=== PATIENT | female | born 1995 | race Caucasian/White ===

== ENCOUNTER 2017-03-19 10:52 | Inpatient (IN) | payer MEDICAID ==
[2017-03-19] MEDS ORDERED: Ampicillin 2 GM in Sodium Chloride 0.9% 100 ML IV ONE (11:11)
[2017-03-19] MEDS ORDERED: Acetaminophen 325 MG Tab PO PRN ×2 (11:11→22:51)
[2017-03-19] MEDS ORDERED: Nalbuphine 20 MG/1 ML Amp IVPUSH PRN (11:11)
[2017-03-19] MEDS ORDERED: Ondansetron 4 MG/2 ML SDV IVPUSH PRN ×2 (11:11→14:01)
[2017-03-19] MEDS ORDERED: Sodium Chloride 0.9% 10 ML Syringe FLUSH PRN (11:11)
--- NOTE | 2017-03-19 11:13 | PCM.LDHP ---
L&D History of Present Illness - General Date of Service: 03/19/17 Admit Problem/Dx: Patient Status Order with Admit Dx/Problem 03/19/17 11:11 Patient Status [ADT] Routine Admission Diagnosis/Problem Admission Diagnosis/Problem Normal Source of Information: Patient History Limitations: Reports: No Limitations - History of Present Illness Introduction:: Patient is a 21 y/o at 35 3/7 wks who presents with threatened labor. Had presented to clinic today for complaints of cramping and decreased FM. NST done and appropriate, but cervix check showed patient to be 3 cm dilated and 100% effaced. She was given BMTZ and asked to present to L&D. Currently doing well. Still getting cramping, but no daren contractions - Related Data Allergies/Adverse Reactions: Allergies Allergy/AdvReac Type Severity Reaction Status Date / Time No Known Allergies Allergy Verified 10/10/15 23:14 Home Medications: Home Meds PNV95/Ferrous Fumarate/FA [ Vitamin Tablet] 1 each PO DAILY 03/19/17 [ History] Past Medical History Endocrine/Metabolic History: Reports: Hypothyroidism Hematologic History: Reports: Other (See Below) (Heterozygote for Factor V Leiden) - Past Surgical History HEENT Surgical History: Reports: Adenoidectomy, Tonsillectomy Social & Family History - Tobacco Use Smoking Status *Q: Former Smoker - Alcohol Use Alcohol Use History: No - Recreational Drug Use Recreational Drug Use: No H&P Review of Systems - Review of Systems: Review Of Systems: See Below General: Reports: No Symptoms Pulmonary: Reports: No Symptoms Cardiovascular: Reports: No Symptoms Gastrointestinal: Reports: No Symptoms Genitourinary: Reports: No Symptoms Musculoskeletal: Reports: No Symptoms Psychiatric: Reports: No Symptoms L&D Exam - Exam Exam: See Below - Vital Signs Weight: 93.44 kg - OB Specific Contraction Intensity: Mild Movement: Active Heart Tones: Present Heart Tones per Min: 140 Heart Rate (FHR) Variability: Moderate (6-25 bmp) Presentation: Vertex - Garrett Score Garrett Score Cervix Position: Anterior Garrett Score Consistency: Soft Garrett Score Effacement: >80% Garrett Score Dilation: 3-4 cm Garrett Score 's Station: -1 ,0 Garrett Score Total: 11 - Exam General: Alert, Oriented, Cooperative Lungs: Clear to Auscultation, Normal Respiratory Effort Cardiovascular: Regular Rate, Regular Rhythm Abdomen: Soft Genitourinary: Normal external exam Extremities: Normal Inspection Skin: Warm, Dry, Intact - Patient Data Result Diagrams: 03/19/17 11:25 - Problem List (1) 35 weeks gestation of SNOMED Code(s): 13812081 ICD Code: Z3A.35 - 35 WEEKS GESTATION OF Status: Acute Current Visit: Yes (2) GBS bacteriuria SNOMED Code(s): 43498673 ICD Code: R82.71 - BACTERIURIA Status: Acute Current Visit: Yes (3) Heterozygous factor V Leiden affecting in third trimester, antepartum SNOMED Code(s): 675428854 ICD Code: O99.113 - OTH DIS OF BLD/BLD-FORM ORG/IMMUN MECHNSM COMP PREG, 3RD TRI; D68.51 - ACTIVATED PROTEIN C RESISTANCE Status: Acute Current Visit: Yes (4) labor SNOMED Code(s): 9214266 ICD Code: O60.00 - LABOR WITHOUT DELIVERY, UNSPECIFIED TRIMESTER Status: Acute Current Visit: Yes Qualifiers: labor trimester: third trimester labor delivery status: with delivery in third trimester Fetus number: single or unspecified fetus Qualified Code(s): O60.14X0 - labor third trimester with delivery third trimester, not applicable or unspecified Problem List Initiated/Reviewed/Updated: Yes Orders Last 24hrs: Active Orders 24 hr Category Date Time Status Patient Status [ADT] Routine ADT 03/19/17 11:11 Ordered Activity as Tolerated [RC] PFP Care 03/19/17 11:11 Ordered Communication Order [RC] ASDIRECTED Care 03/19/17 11:11 Ordered Heart Tones [RC] ASDIRECTED Care 03/19/17 11:11 Ordered Notify Provider [RC] PFP Care 03/19/17 11:11 Ordered Notify Provider [RC] PRN Care 03/19/17 11:11 Ordered Peripheral IV Care [RC] . DIRECTED Care 03/19/17 11:11 Ordered Vital Signs [RC] PER UNIT ROUTINE Care 03/19/17 11:11 Ordered CBC W/O DIFF,HEMOGRAM [HEME] Routine Lab 03/19/17 11:11 Ordered TYPE AND SCREEN [BBK] Routine Lab 03/19/17 11:11 Ordered UA W/MICROSCOPIC [URIN] Routine Lab 03/19/17 11:11 Uncollected Acetaminophen [Tylenol] Med 03/19/17 11:11 Ordered 650 mg PO Q4H PRN Ampicillin 1 gm Med 03/19/17 11:15 Ordered Sodium Chloride 0.9% [Normal Saline] 100 ml IV Q4H Ampicillin 2 gm Med 03/19/17 11:11 Ordered Sodium Chloride 0.9% [Normal Saline] 100 ml IV ONETIME Lactated Ringers [Ringers, Lactated] 1,000 ml Med 03/19/17 11:15 Ordered IV ASDIRECTED Nalbuphine [Nubain] Med 03/19/17 11:11 Ordered 10 mg IVPUSH Q2H PRN Ondansetron [Zofran] Med 03/19/17 11:11 Ordered 4 mg IVPUSH Q4H PRN Oxytocin/Lactated Ringers [Pitocin in LR 10 Units/1,000 Med 03/19/17 11:15 Ordered ML] 10 unit in 1,000 ml IV TITRATE Sodium Chloride 0.9% [Saline Flush] Med 03/19/17 11:11 Ordered 10 ml FLUSH ASDIRECTED PRN Electronic Heart Tones Ext w TOCO [WOMSER] Oth 03/19/17 11:11 Ordered Routine Electronic Heart Tones Internal [WOMSER] Per Unit Oth 03/19/17 11:11 Ordered Routine Peripheral IV Insertion Adult [OM.PC] Routine Oth 03/19/17 11:11 Ordered Resuscitation Status Routine Resus Stat 03/19/17 11:11 Ordered Assessment/Plan Comment:: 21 y/o at 35 3/7 wks who presents in threatened labor * CBC and T&S * GBS positive based on early urine culture. Start Ampicillin * Has received 1 dose of BMTZ. If remains until tomorrow will complete 2nd injection * Peds aware of patient admission * Patient prefers unmedicated delivery * She is heterozygous Factor V Leiden mutation carrier. Not on anti- coagulation during . Depending upon circumstances of delivery may need to consider . Yolande Barreto MD
[2017-03-19] MEDS ORDERED: Oxytocin/Lactated Ringers 10 UNIT/1,000 ML BAG IV SCH (11:15)
[2017-03-19] MEDS: Lactated Ringers 1,000 ML IV SCH ×2 (12:12→15:47)
[2017-03-19] MEDS: Ampicillin 1 GM in Sodium Chloride 0.9% 100 ML IV SCH ×2 (12:14→15:48)
[2017-03-19] MEDS ORDERED: ePHEDrine 50 MG/ML SDV IVPUSH PRN (14:01)
[2017-03-19] MEDS ORDERED: fentaNYL 100 MCG/2 ML SDV EPIDUR PRN (14:01)
[2017-03-19] MEDS ORDERED: Bupivacaine/fentaNYL/NS 100 ML Bag EPIDUR SCH (14:15)
[2017-03-19] MEDS ORDERED: Lidocaine 1% 50 ML MDV ONE (16:06)
[2017-03-19] MEDS ORDERED: Lidocaine 1% 50 ML MDV INJECT ONE (17:55)
[2017-03-19] MEDS ORDERED: Docusate Sodium 100 MG Cap PO PRN (22:51)
[2017-03-19] MEDS ORDERED: Lanolin 100% Cream 7 GM Tube TOP PRN (22:51)
[2017-03-19] MEDS ORDERED: Witch Hazel Medicated Pads 100/Jar TOP PRN (22:51)
[2017-03-20] MEDS: Ibuprofen 600 MG Tab PO PRN ×2 (04:12→11:00)
--- NOTE | 2017-03-20 07:48 | PCM.PNLD ---
Labor Progress Note - VS & Meds Vital Signs: Last Vital Signs Temp 36.5 C 03/20/17 03:59 Pulse 51 L 03/20/17 03:59 Resp 12 03/20/17 03:59 BP 123/68 03/20/17 03:59 Pulse Ox 99 03/20/17 03:59 Active Medications: Current Medications Acetaminophen (Tylenol) 650 mg PO Q4H PRN PRN Reason: mild pain or fever Docusate Sodium (Colace) 100 mg PO BID PRN PRN Reason: Constipation Emollient Ointment (Lansinoh Hpa) 0 gm TOP ASDIRECTED PRN PRN Reason: Sore Nipples Ibuprofen (Motrin) 600 mg PO Q6H PRN PRN Reason: Mild pain or fever Last Admin: 03/20/17 04:12 Dose: 600 mg Witch Becky (Tucks) 1 pad TOP ASDIRECTED PRN PRN Reason: Hemorrhoid pain Discontinued Medications Acetaminophen (Tylenol) 650 mg PO Q4H PRN PRN Reason: Pain (Mild 1-3) and fever Ephedrine Sulfate (Ephedrine Sulfate) 5 mg IVPUSH ASDIRECTED PRN PRN Reason: Hypotension Fentanyl (Sublimaze) 100 mcg EPIDUR Q3H PRN PRN Reason: Pain Fentanyl/Bupivacaine HCl (Fentanyl/Bupivacaine/Ns 2 Mcg-0.125% 100 Ml) 100 ml EPIDUR ASDIRECTED [facility] Ampicillin Sodium 2 gm/ Sodium (Chloride) 100 mls @ 200 mls/hr IV ONETIME ONE Stop: 03/19/17 11:40 Last Admin: 03/19/17 12:12 Dose: 200 mls/hr Ampicillin Sodium 1 gm/ Sodium (Chloride) 100 mls @ 200 mls/hr IV Q4H [facility] Last Admin: 03/19/17 15:48 Dose: 100 mls/hr Lactated Ringer's (Ringers, Lactated) 1,000 mls @ 100 mls/hr IV ASDIRECTED [facility] Last Admin: 03/19/17 15:47 Dose: 100 mls/hr Oxytocin/Lactated Ringer's (Pitocin In Lr 10 Units/1,000 Ml) 10 unit in 1,000 mls @ 500 mls/hr IV TITRATE [facility] PRN Reason: Protocol Last Admin: 03/19/17 17:25 Dose: 6 mls/hr, 6 mls/hr Lidocaine HCl (Xylocaine 1%) Confirm Administered Dose 50 ml .ROUTE .STK-MED ONE Stop: 03/19/17 16:07 Last Admin: 03/19/17 18:32 Dose: Not Given Lidocaine HCl (Xylocaine 1%) 50 ml INJECT ONETIME ONE Stop: 03/19/17 17:56 Last Admin: 03/19/17 17:55 Dose: 15 ml Nalbuphine HCl (Nubain) 10 mg IVPUSH Q2H PRN PRN Reason: Pain (moderate 4-6) Ondansetron HCl (Zofran) 4 mg IVPUSH Q4H PRN PRN Reason: Nausea/Vomiting Ondansetron HCl (Zofran) 4 mg IVPUSH ONETIME PRN PRN Reason: Nausea/Vomiting Sodium Chloride (Saline Flush) 10 ml FLUSH ASDIRECTED PRN PRN Reason: Keep Vein Open - Uterine Contractions Uterine Monitoring Mode: External [place] Contraction Intensity: Moderate to Strong - Monitoring Monitor Mode: External Ultrasound Heart Rate (FHR) Variability: Moderate (6-25 bmp) Accelerations: Present, 15x15 Decelerations: None Strip Review: Category I - Vaginal Exam Dilation (cm): 7 Effacement (Percent): 100 Station: 0 Cervical Position: Anterior Sterile Vaginal Exam Performed By: Yolande Barreto - Labor Progress (Free Text) Labor Progress: Patient just with SROM. Now feeling much more uncomfortable. Rapid cervical change. Anticipate
--- NOTE | 2017-03-20 07:53 | PCM.DEL ---
L & D Note - General Info Date of Service: 03/19/17 - Delivery Note Labor: spontaneous Delivery Outcome: Livebirth Delivery Method: Spontaneous Vaginal Delivery Delivery Mode: Spontaneous Presentation: Right Occiput Anterior (LUZ) Nuchal Cord: Present (Not able to be reduced ) Anesthesia Type: None Amniotic Fluid Description: Clear Episiotomy Type: None Laceration: 2nd degree Suture type: vicryl Suture size: 2-0 Placenta: intact, spontaneous Cord: 3 vessels Estimated Blood Loss: 250 Resuscitation Needed: Yes : Suctioned, Bulb Syringe, Stimulated, Warmed, [place] Used, Warmer Used Score 1 min: 9 Score 5 min: 9 Delivery Comments (Free Text/Narrative):: Patient found to be complete and began pushing. With maternal pushing effort head delivered from an LUZ presentation. Tight nuchal cord present. NOt able to be reduced. Gentle downward tractions placed on head with quick delivery of shoulders and body. Cord clamped and cut. Baby handed to awaiting [employer]. Cord blood obtained. Placenta allowed time to separate and then expelled. Inspection of the perineum showed a 2nd degree laceration repaired with a 2-0 vicryl in the typical fashion - Patient Data Vitals - most recent: Last Vital Signs Temp 36.5 C 03/20/17 03:59 Pulse 51 L 03/20/17 03:59 Resp 12 03/20/17 03:59 BP 123/68 03/20/17 03:59 Pulse Ox 99 03/20/17 03:59 Weight - most recent: 93.44 kg I&O - last 24 hours: Intake & Output 03/19/17 03/20/17 03/20/17 22:59 06:59 14:59 Intake Total 1300 Balance 1300 Lab Results last 24 hrs: Laboratory Results - last 24 hr 03/19/17 03/19/17 03/19/17 Range/Units 11:25 11:25 11:45 WBC 11.77 H (3.98-10.04) K/mm3 RBC 4.64 (3.98-5.22) M/mm3 Hgb 14.1 (11.2-15.7) gm/L Hct 39.3 (34.1-44.9) % MCV 84.7 (79.4-94.8) fl MCH 30.4 (25.6-32.2) pg MCHC 35.9 H (32.2-35.5) g/dl RDW Std Deviation 39.4 (36.4-46.3) fL Plt Count 229 (182-369) K/mm3 MPV 10.0 (9.4-12.3) fl Urine Color Yellow (Yellow) Urine Appearance Clear (Clear) Urine pH 7.0 (5.0-8.0) Ur Specific [place] 1.025 (1.005-1.030) Urine Protein Negative (Negative) Urine Glucose (UA) Negative (Negative) Urine Ketones Negative (Negative) Urine Occult Blood 2+ H (Negative) Urine Nitrite Negative (Negative) Urine Bilirubin Negative (Negative) Urine Urobilinogen 0.2 (0.2-1.0) Ur Leukocyte Esterase 1+ H (Negative) Urine RBC 5-10 H (0-5) /hpf Urine WBC 5-10 H (0-5) /hpf Ur Epithelial Cells 5-10 H (0-5) /hpf Urine Bacteria Few (FEW) /hpf Urine Mucus Few (FEW) /hpf Urine Opiates Screen (NEGATIVE) Ur Buprenorphine Scrn (NEGATIVE) Ur Oxycodone Screen (NEGATIVE) Urine Methadone Screen (NEGATIVE) Ur Propoxyphene Screen (NEGATIVE) Ur Barbiturates Screen (NEGATIVE) Ur Tricyclics Screen (NEGATIVE) Ur Phencyclidine Scrn (NEGATIVE) Ur Amphetamine Screen (NEGATIVE) U Methamphetamines Scrn (NEGATIVE) U Benzodiazepines Scrn (NEGATIVE) U Cocaine Metab Screen (NEGATIVE) U Marijuana (THC) Screen (NEGATIVE) Blood Type A POSITIVE Gel Antibody Screen Negative 03/19/17 Range/Units 11:45 WBC (3.98-10.04) K/mm3 RBC (3.98-5.22) M/mm3 Hgb (11.2-15.7) gm/L Hct (34.1-44.9) % MCV (79.4-94.8) fl MCH (25.6-32.2) pg MCHC (32.2-35.5) g/dl RDW Std Deviation (36.4-46.3) fL Plt Count (182-369) K/mm3 MPV (9.4-12.3) fl Urine Color (Yellow) Urine Appearance (Clear) Urine pH (5.0-8.0) Ur Specific [place] (1.005-1.030) Urine Protein (Negative) Urine Glucose (UA) (Negative) Urine Ketones (Negative) Urine Occult Blood (Negative) Urine Nitrite (Negative) Urine Bilirubin (Negative) Urine Urobilinogen (0.2-1.0) Ur Leukocyte Esterase (Negative) Urine RBC (0-5) /hpf Urine WBC (0-5) /hpf Ur Epithelial Cells (0-5) /hpf Urine Bacteria (FEW) /hpf Urine Mucus (FEW) /hpf Urine Opiates Screen Negative (NEGATIVE) Ur Buprenorphine Scrn Negative (NEGATIVE) Ur Oxycodone Screen Negative (NEGATIVE) Urine Methadone Screen Negative (NEGATIVE) Ur Propoxyphene Screen Negative (NEGATIVE) Ur Barbiturates Screen Negative (NEGATIVE) Ur Tricyclics Screen Negative (NEGATIVE) Ur Phencyclidine Scrn Negative (NEGATIVE) Ur Amphetamine Screen Negative (NEGATIVE) U Methamphetamines Scrn Negative (NEGATIVE) U Benzodiazepines Scrn Negative (NEGATIVE) U Cocaine Metab Screen Negative (NEGATIVE) U Marijuana (THC) Screen Presumptive positive H (NEGATIVE) Blood Type Gel Antibody Screen Med Orders - Current: Current Medications Acetaminophen (Tylenol) 650 mg PO Q4H PRN PRN Reason: mild pain or fever Docusate Sodium (Colace) 100 mg PO BID PRN PRN Reason: Constipation Emollient Ointment (Lansinoh Hpa) 0 gm TOP ASDIRECTED PRN PRN Reason: Sore Nipples Ibuprofen (Motrin) 600 mg PO Q6H PRN PRN Reason: Mild pain or fever Last Admin: 03/20/17 04:12 Dose: 600 mg Witch Becky (Tucks) 1 pad TOP ASDIRECTED PRN PRN Reason: Hemorrhoid pain Discontinued Medications Acetaminophen (Tylenol) 650 mg PO Q4H PRN PRN Reason: Pain (Mild 1-3) and fever Ephedrine Sulfate (Ephedrine Sulfate) 5 mg IVPUSH ASDIRECTED PRN PRN Reason: Hypotension Fentanyl (Sublimaze) 100 mcg EPIDUR Q3H PRN PRN Reason: Pain Fentanyl/Bupivacaine HCl (Fentanyl/Bupivacaine/Ns 2 Mcg-0.125% 100 Ml) 100 ml EPIDUR ASDIRECTED [facility] Ampicillin Sodium 2 gm/ Sodium (Chloride) 100 mls @ 200 mls/hr IV ONETIME ONE Stop: 03/19/17 11:40 Last Admin: 03/19/17 12:12 Dose: 200 mls/hr Ampicillin Sodium 1 gm/ Sodium (Chloride) 100 mls @ 200 mls/hr IV Q4H [facility] Last Admin: 03/19/17 15:48 Dose: 100 mls/hr Lactated Ringer's (Ringers, Lactated) 1,000 mls @ 100 mls/hr IV ASDIRECTED [facility] Last Admin: 03/19/17 15:47 Dose: 100 mls/hr Oxytocin/Lactated Ringer's (Pitocin In Lr 10 Units/1,000 Ml) 10 unit in 1,000 mls @ 500 mls/hr IV TITRATE [facility] PRN Reason: Protocol Last Admin: 03/19/17 17:25 Dose: 6 mls/hr, 6 mls/hr Lidocaine HCl (Xylocaine 1%) Confirm Administered Dose 50 ml .ROUTE .STK-MED ONE Stop: 03/19/17 16:07 Last Admin: 03/19/17 18:32 Dose: Not Given Lidocaine HCl (Xylocaine 1%) 50 ml INJECT ONETIME ONE Stop: 03/19/17 17:56 Last Admin: 03/19/17 17:55 Dose: 15 ml Nalbuphine HCl (Nubain) 10 mg IVPUSH Q2H PRN PRN Reason: Pain (moderate 4-6) Ondansetron HCl (Zofran) 4 mg IVPUSH Q4H PRN PRN Reason: Nausea/Vomiting Ondansetron HCl (Zofran) 4 mg IVPUSH ONETIME PRN PRN Reason: Nausea/Vomiting Sodium Chloride (Saline Flush) 10 ml FLUSH ASDIRECTED PRN PRN Reason: Keep Vein Open - Problem List & Annotations (1) 35 weeks gestation of SNOMED Code(s): 51909541 Code(s): Z3A.35 - 35 WEEKS GESTATION OF Status: Acute Current Visit: Yes (2) GBS bacteriuria SNOMED Code(s): 21717616 Code(s): R82.71 - BACTERIURIA Status: Acute Current Visit: Yes (3) Heterozygous factor V Leiden affecting in third trimester, antepartum SNOMED Code(s): 503332024 Code(s): O99.113 - OTH DIS OF BLD/BLD-FORM ORG/IMMUN MECHNSM COMP PREG, 3RD TRI; D68.51 - ACTIVATED PROTEIN C RESISTANCE Status: Acute Current Visit: Yes (4) labor SNOMED Code(s): 9372128 Code(s): O60.00 - LABOR WITHOUT DELIVERY, UNSPECIFIED TRIMESTER Status: Acute Current Visit: Yes Qualifiers: labor trimester: third trimester labor delivery status: with delivery in third trimester Fetus number: single or unspecified fetus Qualified Code(s): O60.14X0 - labor third trimester with delivery third trimester, not applicable or unspecified (5) Vaginal delivery SNOMED Code(s): 779052196 Code(s): O80 - ENCOUNTER FOR FULL-TERM UNCOMPLICATED DELIVERY Status: Acute Current Visit: Yes - Problem List Review Problem List Initiated/Reviewed/Updated: Yes - My Orders Last 24 Hours: My Active Orders 03/19/17 11:11 Resuscitation Status Routine 03/19/17 11:45 MISC TEST Routine 03/19/17 22:51 Activity as Tolerated [RC] PER UNIT ROUTINE Vital Signs [RC] 20,04,12 Acetaminophen [Tylenol] 650 mg PO Q4H PRN Docusate Sodium [Colace] 100 mg PO BID PRN Ibuprofen [Motrin] 600 mg PO Q6H PRN Lanolin [Lansinoh HPA] See Dose Instructions TOP ASDIRECTED PRN Witch Becky [Tucks] 1 pad TOP ASDIRECTED PRN Assess Lochia [WOMSER] Per Unit Routine Assess Uterine Involution [WOMSER] Per Unit Routine Breast Pump [WOMSER] Per Unit Routine Heat Therapy [OM.PC] PRN Ice Therapy [OM.PC] Per Unit Routine Perineal Care [OM.PC] Per Unit Routine Peripheral IV Discontinue [OM.PC] Routine Sitz Bath [OM.PC] Per Unit Routine 03/19/17 Dinner Regular Diet [DIET] 03/20/17 22:51 Heat Therapy [OM.PC] PRN - Assessment Assessment:: 21 y/o G1 now P0101 PPD#0 from at 35 3/7 wks - Plan Plan:: * Urine analysis not impressive for infection. Urine drug screen preliminary positive for THC. Will send confirmatory. Patient aware. * Routine cares * Encourage breast feeding * She is heterozygous Factor V Leiden mutation carrier. Not on anti- coagulation during . Not felt indicated as no major risk factors during delivery * Discharge home in 2 days Yolande Barreto MD
--- NOTE | 2017-03-20 07:57 | PCM.PNPP ---
- General Info Date of Service: 03/20/17 Functional Status: Reports: pain controlled, tolerating diet, ambulating, urinating - Review of Systems General: Reports: No Symptoms Pulmonary: Reports: no symptoms Cardiovascular: Reports: No Symptoms Gastrointestinal: Reports: No symptoms Genitourinary: Reports: no symptoms Musculoskeletal: Reports: no symptoms - Patient Data Vital Signs - most recent: Last Vital Signs Temp 36.5 C 03/20/17 03:59 Pulse 51 L 03/20/17 03:59 Resp 12 03/20/17 03:59 BP 123/68 03/20/17 03:59 Pulse Ox 99 03/20/17 03:59 Weight - most recent: 93.44 kg I&O - last 24 hours: Intake & Output 03/19/17 03/20/17 03/20/17 22:59 06:59 14:59 Intake Total 1300 Balance 1300 Lab Results - last 24 hrs: Laboratory Results - last 24 hr 03/19/17 03/19/17 03/19/17 Range/Units 11:25 11:25 11:45 WBC 11.77 H (3.98-10.04) K/mm3 RBC 4.64 (3.98-5.22) M/mm3 Hgb 14.1 (11.2-15.7) gm/L Hct 39.3 (34.1-44.9) % MCV 84.7 (79.4-94.8) fl MCH 30.4 (25.6-32.2) pg MCHC 35.9 H (32.2-35.5) g/dl RDW Std Deviation 39.4 (36.4-46.3) fL Plt Count 229 (182-369) K/mm3 MPV 10.0 (9.4-12.3) fl Urine Color Yellow (Yellow) Urine Appearance Clear (Clear) Urine pH 7.0 (5.0-8.0) Ur Specific [place] 1.025 (1.005-1.030) Urine Protein Negative (Negative) Urine Glucose (UA) Negative (Negative) Urine Ketones Negative (Negative) Urine Occult Blood 2+ H (Negative) Urine Nitrite Negative (Negative) Urine Bilirubin Negative (Negative) Urine Urobilinogen 0.2 (0.2-1.0) Ur Leukocyte Esterase 1+ H (Negative) Urine RBC 5-10 H (0-5) /hpf Urine WBC 5-10 H (0-5) /hpf Ur Epithelial Cells 5-10 H (0-5) /hpf Urine Bacteria Few (FEW) /hpf Urine Mucus Few (FEW) /hpf Urine Opiates Screen (NEGATIVE) Ur Buprenorphine Scrn (NEGATIVE) Ur Oxycodone Screen (NEGATIVE) Urine Methadone Screen (NEGATIVE) Ur Propoxyphene Screen (NEGATIVE) Ur Barbiturates Screen (NEGATIVE) Ur Tricyclics Screen (NEGATIVE) Ur Phencyclidine Scrn (NEGATIVE) Ur Amphetamine Screen (NEGATIVE) U Methamphetamines Scrn (NEGATIVE) U Benzodiazepines Scrn (NEGATIVE) U Cocaine Metab Screen (NEGATIVE) U Marijuana (THC) Screen (NEGATIVE) Blood Type A POSITIVE Gel Antibody Screen Negative 03/19/17 Range/Units 11:45 WBC (3.98-10.04) K/mm3 RBC (3.98-5.22) M/mm3 Hgb (11.2-15.7) gm/L Hct (34.1-44.9) % MCV (79.4-94.8) fl MCH (25.6-32.2) pg MCHC (32.2-35.5) g/dl RDW Std Deviation (36.4-46.3) fL Plt Count (182-369) K/mm3 MPV (9.4-12.3) fl Urine Color (Yellow) Urine Appearance (Clear) Urine pH (5.0-8.0) Ur Specific [place] (1.005-1.030) Urine Protein (Negative) Urine Glucose (UA) (Negative) Urine Ketones (Negative) Urine Occult Blood (Negative) Urine Nitrite (Negative) Urine Bilirubin (Negative) Urine Urobilinogen (0.2-1.0) Ur Leukocyte Esterase (Negative) Urine RBC (0-5) /hpf Urine WBC (0-5) /hpf Ur Epithelial Cells (0-5) /hpf Urine Bacteria (FEW) /hpf Urine Mucus (FEW) /hpf Urine Opiates Screen Negative (NEGATIVE) Ur Buprenorphine Scrn Negative (NEGATIVE) Ur Oxycodone Screen Negative (NEGATIVE) Urine Methadone Screen Negative (NEGATIVE) Ur Propoxyphene Screen Negative (NEGATIVE) Ur Barbiturates Screen Negative (NEGATIVE) Ur Tricyclics Screen Negative (NEGATIVE) Ur Phencyclidine Scrn Negative (NEGATIVE) Ur Amphetamine Screen Negative (NEGATIVE) U Methamphetamines Scrn Negative (NEGATIVE) U Benzodiazepines Scrn Negative (NEGATIVE) U Cocaine Metab Screen Negative (NEGATIVE) U Marijuana (THC) Screen Presumptive positive H (NEGATIVE) Blood Type Gel Antibody Screen Med Orders - Current: Current Medications Acetaminophen (Tylenol) 650 mg PO Q4H PRN PRN Reason: mild pain or fever Docusate Sodium (Colace) 100 mg PO BID PRN PRN Reason: Constipation Emollient Ointment (Lansinoh Hpa) 0 gm TOP ASDIRECTED PRN PRN Reason: Sore Nipples Ibuprofen (Motrin) 600 mg PO Q6H PRN PRN Reason: Mild pain or fever Last Admin: 03/20/17 04:12 Dose: 600 mg Witch Becky (Tucks) 1 pad TOP ASDIRECTED PRN PRN Reason: Hemorrhoid pain Discontinued Medications Acetaminophen (Tylenol) 650 mg PO Q4H PRN PRN Reason: Pain (Mild 1-3) and fever Ephedrine Sulfate (Ephedrine Sulfate) 5 mg IVPUSH ASDIRECTED PRN PRN Reason: Hypotension Fentanyl (Sublimaze) 100 mcg EPIDUR Q3H PRN PRN Reason: Pain Fentanyl/Bupivacaine HCl (Fentanyl/Bupivacaine/Ns 2 Mcg-0.125% 100 Ml) 100 ml EPIDUR ASDIRECTED [facility] Ampicillin Sodium 2 gm/ Sodium (Chloride) 100 mls @ 200 mls/hr IV ONETIME ONE Stop: 03/19/17 11:40 Last Admin: 03/19/17 12:12 Dose: 200 mls/hr Ampicillin Sodium 1 gm/ Sodium (Chloride) 100 mls @ 200 mls/hr IV Q4H [facility] Last Admin: 03/19/17 15:48 Dose: 100 mls/hr Lactated Ringer's (Ringers, Lactated) 1,000 mls @ 100 mls/hr IV ASDIRECTED [facility] Last Admin: 03/19/17 15:47 Dose: 100 mls/hr Oxytocin/Lactated Ringer's (Pitocin In Lr 10 Units/1,000 Ml) 10 unit in 1,000 mls @ 500 mls/hr IV TITRATE [facility] PRN Reason: Protocol Last Admin: 03/19/17 17:25 Dose: 6 mls/hr, 6 mls/hr Lidocaine HCl (Xylocaine 1%) Confirm Administered Dose 50 ml .ROUTE .STK-MED ONE Stop: 03/19/17 16:07 Last Admin: 03/19/17 18:32 Dose: Not Given Lidocaine HCl (Xylocaine 1%) 50 ml INJECT ONETIME ONE Stop: 03/19/17 17:56 Last Admin: 03/19/17 17:55 Dose: 15 ml Nalbuphine HCl (Nubain) 10 mg IVPUSH Q2H PRN PRN Reason: Pain (moderate 4-6) Ondansetron HCl (Zofran) 4 mg IVPUSH Q4H PRN PRN Reason: Nausea/Vomiting Ondansetron HCl (Zofran) 4 mg IVPUSH ONETIME PRN PRN Reason: Nausea/Vomiting Sodium Chloride (Saline Flush) 10 ml FLUSH ASDIRECTED PRN PRN Reason: Keep Vein Open - Interaction Infant Disposition, : in Room with Family Infant Interaction: Holding Infant Infant Feeding: Attempted ; Nursed Fair/Poor, Bottle Fed Support Person: Mother, Significant Other - Recovery Exam Fundal Tone: Firm Fundal Level: 1 Fingerbreadths Below Umbilicus Fundal Placement: Midline Lochia Amount: Small Lochia Color: Rubra/Red Episiotomy/Laceration: Approximated Bladder Status: Voiding Urinary Elimination: Voided - Exam General: alert, oriented, cooperative Abdomen: soft, no tenderness Extremities: no edema Skin: warm, dry, intact - Problem List & Annotations (1) 35 weeks gestation of SNOMED Code(s): 20145555 Code(s): Z3A.35 - 35 WEEKS GESTATION OF Status: Acute Current Visit: Yes (2) GBS bacteriuria SNOMED Code(s): 67560494 Code(s): R82.71 - BACTERIURIA Status: Acute Current Visit: Yes (3) Heterozygous factor V Leiden affecting in third trimester, antepartum SNOMED Code(s): 674914862 Code(s): O99.113 - OTH DIS OF BLD/BLD-FORM ORG/IMMUN MECHNSM COMP PREG, 3RD TRI; D68.51 - ACTIVATED PROTEIN C RESISTANCE Status: Acute Current Visit: Yes (4) labor SNOMED Code(s): 0894941 Code(s): O60.00 - LABOR WITHOUT DELIVERY, UNSPECIFIED TRIMESTER Status: Acute Current Visit: Yes Qualifiers: labor trimester: third trimester labor delivery status: with delivery in third trimester Fetus number: single or unspecified fetus Qualified Code(s): O60.14X0 - labor third trimester with delivery third trimester, not applicable or unspecified (5) Vaginal delivery SNOMED Code(s): 443711657 Code(s): O80 - ENCOUNTER FOR FULL-TERM UNCOMPLICATED DELIVERY Status: Acute Current Visit: Yes - Problem List Review Problem List Initiated/Reviewed/Updated: Yes - My Orders Last 24 Hours: My Active Orders 03/19/17 11:11 Resuscitation Status Routine 03/19/17 11:45 MISC TEST Routine 03/19/17 22:51 Activity as Tolerated [RC] PER UNIT ROUTINE Vital Signs [RC] 20,04,12 Acetaminophen [Tylenol] 650 mg PO Q4H PRN Docusate Sodium [Colace] 100 mg PO BID PRN Ibuprofen [Motrin] 600 mg PO Q6H PRN Lanolin [Lansinoh HPA] See Dose Instructions TOP ASDIRECTED PRN Witch Becky [Tucks] 1 pad TOP ASDIRECTED PRN Assess Lochia [WOMSER] Per Unit Routine Assess Uterine Involution [WOMSER] Per Unit Routine Breast Pump [WOMSER] Per Unit Routine Heat Therapy [OM.PC] PRN Ice Therapy [OM.PC] Per Unit Routine Perineal Care [OM.PC] Per Unit Routine Peripheral IV Discontinue [OM.PC] Routine Sitz Bath [OM.PC] Per Unit Routine 03/19/17 Dinner Regular Diet [DIET] 03/20/17 22:51 Heat Therapy [OM.PC] PRN - Assessment Assessment:: 21 y/o G1 now P0101 PPD#1 from at 35 3/7 wks - Plan Plan:: * Routine cares * Encourage breast feeding * She is heterozygous Factor V Leiden mutation carrier. Not on anti- coagulation during . Not felt indicated as no major risk factors during delivery * Discharge home tomorrow Yolande Barreto MD
[2017-03-20] MEDS: Ampicillin 1 GM in Sodium Chloride 0.9% 100 ML IV SCH (08:01)
[2017-03-21] MEDS: Ibuprofen 600 MG Tab PO PRN (00:28)
[2017-03-21 13:28] VITALS: BP 122/67
--- NOTE | 2017-04-02 08:29 | PCM.DCSUM1 ---
Discharge Summary - Discharge Data Discharge Date: 03/21/17 Discharge Disposition: Home, Self-Care 01 Condition: Good - Patient Summary/Data Hospital Course: see labor and delivery summary. Unremarkable course - Patient Instructions Diet: Usual Diet as Tolerated Activity: No Strenuous Activities Driving: May Drive Today Showering/Bathing: May Shower Notify Provider of: Fever, Increased Pain, Swelling and Redness, Drainage, Nausea and/or Vomiting - Discharge Plan Home Medications: Home Meds PNV95/Ferrous Fumarate/FA [ Vitamin Tablet] 1 each PO DAILY 03/19/17 [ History] Patient Handouts: Smoking Hazards, Smoking Cessation, Tips for Success - General Info Date of Service: 03/21/17 Functional Status: Reports: Pain Controlled - Review of Systems General: Reports: No Symptoms HEENT: Reports: No Symptoms Pulmonary: Reports: No Symptoms Cardiovascular: Reports: No Symptoms Gastrointestinal: Reports: No Symptoms Genitourinary: Reports: No Symptoms Musculoskeletal: Reports: No Symptoms Skin: Reports: No Symptoms Neurological: Reports: No Symptoms Psychiatric: Reports: No Symptoms - Patient Data Vitals - Most Recent: Last Vital Signs Temp 97.8 C H 03/21/17 12:50 Pulse 59 L 03/21/17 12:00 Resp 18 03/21/17 12:50 BP 122/67 03/21/17 12:50 Pulse Ox 99 03/21/17 12:00 Weight - Most Recent: 93.44 kg Med Orders - Current: Current Medications Discontinued Medications Acetaminophen (Tylenol) 650 mg PO Q4H PRN PRN Reason: Pain (Mild 1-3) and fever Acetaminophen (Tylenol) 650 mg PO Q4H PRN PRN Reason: mild pain or fever Docusate Sodium (Colace) 100 mg PO BID PRN PRN Reason: Constipation Emollient Ointment (Lansinoh Hpa) 0 gm TOP ASDIRECTED PRN PRN Reason: Sore Nipples Ephedrine Sulfate (Ephedrine Sulfate) 5 mg IVPUSH ASDIRECTED PRN PRN Reason: Hypotension Fentanyl (Sublimaze) 100 mcg EPIDUR Q3H PRN PRN Reason: Pain Fentanyl/Bupivacaine HCl (Fentanyl/Bupivacaine/Ns 2 Mcg-0.125% 100 Ml) 100 ml EPIDUR ASDIRECTED [facility] Ampicillin Sodium 2 gm/ Sodium (Chloride) 100 mls @ 200 mls/hr IV ONETIME ONE Stop: 03/19/17 11:40 Last Admin: 03/19/17 12:12 Dose: 200 mls/hr Ampicillin Sodium 1 gm/ Sodium (Chloride) 100 mls @ 200 mls/hr IV Q4H [facility] Last Admin: 03/20/17 08:01 Dose: Not Given Lactated Ringer's (Ringers, Lactated) 1,000 mls @ 100 mls/hr IV ASDIRECTED [facility] Last Admin: 03/19/17 15:47 Dose: 100 mls/hr Oxytocin/Lactated Ringer's (Pitocin In Lr 10 Units/1,000 Ml) 10 unit in 1,000 mls @ 500 mls/hr IV TITRATE [facility] PRN Reason: Protocol Last Admin: 03/19/17 17:25 Dose: 6 mls/hr, 6 mls/hr Ibuprofen (Motrin) 600 mg PO Q6H PRN PRN Reason: Mild pain or fever Last Admin: 03/21/17 00:28 Dose: 600 mg Lidocaine HCl (Xylocaine 1%) Confirm Administered Dose 50 ml .ROUTE .STK-MED ONE Stop: 03/19/17 16:07 Last Admin: 03/19/17 18:32 Dose: Not Given Lidocaine HCl (Xylocaine 1%) 50 ml INJECT ONETIME ONE Stop: 03/19/17 17:56 Last Admin: 03/19/17 17:55 Dose: 15 ml Nalbuphine HCl (Nubain) 10 mg IVPUSH Q2H PRN PRN Reason: Pain (moderate 4-6) Ondansetron HCl (Zofran) 4 mg IVPUSH Q4H PRN PRN Reason: Nausea/Vomiting Ondansetron HCl (Zofran) 4 mg IVPUSH ONETIME PRN PRN Reason: Nausea/Vomiting Sodium Chloride (Saline Flush) 10 ml FLUSH ASDIRECTED PRN PRN Reason: Keep Vein Open Witch Becky (Tucks) 1 pad TOP ASDIRECTED PRN PRN Reason: Hemorrhoid pain - Exam General: Reports: Alert, Oriented HEENT: Reports: Pupils Equal, Pupils Reactive, EOMI, Mucous Membr. Moist/[place] Neck: Reports: Supple Lungs: Reports: Clear to Auscultation, Normal Respiratory Effort Cardiovascular: Reports: Regular Rate, Regular Rhythm GI/Abdominal Exam: Normal Bowel Sounds, Soft, Non-Tender, No Organomegaly, No Distention, No Abnormal Bruit, No Mass, Pelvis Stable (Female) Exam: Normal External Exam, Normal Speculum Exam, Normal Bimanual Exam Rectal (Female) Exam: Normal Exam, Normal Rectal Tone Back Exam: Reports: Normal Inspection, Full Range of Motion Extremities: Normal Inspection, Normal Range of Motion, Non-Tender, No Pedal Edema, Normal Capillary Refill Skin: Reports: Warm, Dry, Intact Wound/Incisions: Reports: Healing Well Neurological: Reports: No New Focal Deficit Psy/Mental Status: Reports: Alert, Normal Affect, Normal Mood *Q Meaningful Use (DIS) - VTE *Q VTE Criteria *Q: - Stroke *Q Stroke Criteria *Q: - AMI *Q AMI Criteria *Q:
== END 2017-03-21 13:55 | disposition home or self-care (01) | DRG 775 ==
LOC: JD.OBCHECK 10:52 → JD.OB 10:54 → JD.OBCHECK 11:11 → OBSVTOIN 17:50 → JD.OB 17:50
PROVIDERS: ADMIT Obstetrics & Gynecology; ATTEND Obstetrics & Gynecology
PROC: 10E0XZZ Delivery of Products of Conception, External Approach (ICD-10-PCS; principal; 2017-03-19)
PROC: 0KQM0ZZ Repair Perineum Muscle, Open Approach (ICD-10-PCS; 2017-03-19)
DX: O60.14X0 Preterm labor third trimester with preterm delivery third trimester, not applicable or unspecified (principal); O99.113 Other diseases of the blood and blood-forming organs and certain disorders involving the immune mechanism complicating pregnancy, third trimester; D68.51 Activated protein C resistance; O99.824 Streptococcus B carrier state complicating childbirth; Z3A.35 35 weeks gestation of pregnancy; Z37.0 Single live birth; O70.1 Second degree perineal laceration during delivery; O69.81X0 Labor and delivery complicated by cord around neck, without compression, not applicable or unspecified; Z87.891 Personal history of nicotine dependence
CPT/HCPCS: 36415; 80306; 80349; 81001; 85027; 86850; 86900; 86901; A9270-GY; J0290; J2590; J7030; J7120

== ENCOUNTER 2018-02-01 11:55 | Emergency (ER) | payer MEDICAID ==
[2018-02-01 12:09] VITALS: BP 132/69
[2018-02-01] MEDS ORDERED: Ketorolac 60 MG/2 ML SDV IM ONE (12:39)
--- NOTE | 2018-02-01 12:45 | EDM.PDOC ---
ED HPI GENERAL MEDICAL PROBLEM - General Chief Complaint: Chest Pain Stated Complaint: CHEST PAIN/RIGHT SHOULDER PAIN Time Seen by Provider: 02/01/18 12:30 Source of Information: Reports: Patient History Limitations: Reports: No Limitations - History of Present Illness INITIAL COMMENTS - FREE TEXT/NARRATIVE: Patient is a 22-year-old female presents ED complaining of anterior chest discomfort described as sharp in nature worsened with palpation and taking a deep breath. Patient states the chest discomfort started last night and has progressively worsened. Also complaints of right shoulder pain that is generalized, worsen with any movement for the past 3 days. Of note patient has been riding bike more than usual over the past 2 weeks. Roughly 4-6 miles every day. Otherwise denies any recent trauma or activities that may have precipitated this discomfort. She has a cough that is chronic secondary to smoking. She is on control and has no history of DVTs or PEs. Denies any pain or swelling to the posterior aspect of her calves. She denies any recent infection. Denies any fevers, nausea vomiting, abdominal pain, dysuria, or any additional complaints. Past medical history: Depression, anxiety, Factor V, and hypothyroidism. Current medications: Levothyroxine, Zoloft, and control. Preg Hx: [id number]. 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: Psychiatric History: Reports: Mood Swings Endocrine/Metabolic History: Reports: Hypothyroidism Hematologic History: Reports: Other (See Below) Other Hematologic History: Factor V Leiden mutation - Past Surgical History HEENT Surgical History: Reports: Adenoidectomy, Tonsillectomy Female Surgical History: Reports: None Social & Family History - Family History Other HEENT Family History: see history for details of family history - Tobacco Use Smoking Status *Q: Current Every Day Smoker Years of Tobacco use: 2 Packs/Tins Daily: 0.1 - Caffeine Use Caffeine Use: Reports: Energy Drinks - Alcohol Use Days Per Week of Alcohol Use: 4 Number of Drinks Per Day: 25 Total Drinks Per Week: 100 Date of Last Drink: 01/31/18 - Recreational Drug Use Recreational Drug Use: No ED ROS GENERAL - Review of Systems Review Of Systems: See Below Constitutional: Denies: Fever, Chills, Decreased Appetite HEENT: Reports: No Symptoms Respiratory: Reports: Pleuritic Chest Pain, Cough, Hemoptysis. Denies: Shortness of Breath, Wheezing, Sputum Cardiovascular: Reports: Chest Pain. Denies: Dyspnea on Exertion, Lightheadedness, Palpitations, PND, Syncope Endocrine: Reports: No Symptoms GI/Abdominal: Reports: No Symptoms : Reports: No Symptoms Musculoskeletal: Reports: No Symptoms Skin: Reports: No Symptoms Neurological: Reports: No Symptoms Psychiatric: Reports: No Symptoms ED EXAM, GENERAL - Physical Exam Exam: See Below Exam Limited By: No Limitations General Appearance: Alert, WD/WN, No Apparent Distress Eye Exam: Bilateral Eye: Normal Inspection Ears: Hearing Grossly Normal Nose: Normal Inspection Throat/Mouth: Normal Inspection, Normal Oropharynx, Normal Voice, No Airway Compromise Head: Atraumatic, Normocephalic Neck: Normal Inspection, Supple, Non-Tender, Full Range of Motion. No: Lymphadenopathy (L), Lymphadenopathy (R) Respiratory/Chest: No Respiratory Distress, Lungs Clear, Normal Breath Sounds, No Accessory Muscle Use, Other (tenderness to the chest throughout with palpaton ) Cardiovascular: Normal Peripheral Pulses, Regular Rate, Rhythm, No Murmur Peripheral Pulses: 4+: Radial (L), Radial (R) GI/Abdominal: Normal Bowel Sounds, Soft, Tender (slight tenderness to the epigastric region. ) Rectal (Female) Exam: Deferred Back Exam: Normal Inspection. No: CVA Tenderness (L), CVA Tenderness (R) Extremities: Normal Inspection, Normal Range of Motion, Non-Tender, No Pedal Edema Neurological: Alert, Oriented, CN II-XII Intact, Normal Cognition, No Motor/ Sensory Deficits Psychiatric: Normal Affect, Normal Mood Skin Exam: Warm, Dry, Intact, Normal Color Course - Vital Signs Last Recorded V/S: Last Vital Signs Temp 98.0 F 02/01/18 12:03 Pulse 92 02/01/18 12:03 Resp 17 02/01/18 12:03 BP 132/69 02/01/18 12:03 Pulse Ox 97 02/01/18 12:03 - Orders/Labs/Meds Orders: Active Orders 24 hr Category Date Time Status EKG Documentation Completion [RC] STAT Care 02/01/18 12:39 Active Peripheral IV Care [RC] . DIRECTED Care 02/01/18 13:39 Active Chest 1V Frontal [CR] Stat Exams 02/01/18 12:39 Taken DRUG SCREEN, URINE [URCHEM] Stat Lab 02/01/18 12:50 Ordered Peripheral IV Insertion Adult [OM.PC] Routine Oth 02/01/18 13:39 Ordered Labs: Laboratory Tests 02/01/18 02/01/18 02/01/18 Range/Units 12:50 12:55 12:55 WBC 10.00 (3.98-10.04) K/mm3 RBC 4.59 (3.98-5.22) M/mm3 Hgb 13.3 (11.2-15.7) gm/L Hct 38.7 (34.1-44.9) % MCV 84.3 (79.4-94.8) fl MCH 29.0 (25.6-32.2) pg MCHC 34.4 (32.2-35.5) g/dl RDW Std Deviation 37.8 (36.4-46.3) fL Plt Count 244 (182-369) K/mm3 MPV 9.1 L (9.4-12.3) fl Neutrophils % (Manual) 71 H (40-60) % Band Neutrophils % 0 (0-10) % Lymphocytes % (Manual) 20 (20-40) % Atypical Lymphs % 0 % Monocytes % (Manual) 7 (2-10) % Eosinophils % (Manual) 2 (0.7-5.8) % Basophils % (Manual) 0 L (0.1-1.2) Platelet Estimate Adequate Plt Morphology Comment Normal RBC Morph Comment Normal PT (9.5-12.1) SECONDS INR APTT (24-31) SECONDS D-Dimer, Quantitative (0.19-0.50) mg/L Sodium 139 (136-145) mEq/L Potassium 4.2 (3.5-5.1) mEq/L Chloride 104 (98-107) mEq/L Carbon Dioxide 25 (21-32) mEq/L Anion Gap 14.2 (5-15) BUN 7 (7-18) mg/dL Creatinine 0.8 (0.55-1.02) mg/dL Est Cr Clr Drug Dosing 100.94 mL/min Estimated GFR (MDRD) > 60 (>60) mL/min BUN/Creatinine Ratio 8.8 L (14-18) Glucose 104 (74-106) mg/dL Calcium 9.1 (8.5-10.1) mg/dL Total Bilirubin 0.6 (0.2-1.0) mg/dL AST 6 L (15-37) U/L ALT 16 (14-59) U/L Alkaline Phosphatase 93 (46-116) U/L C-Reactive Protein 12.0 H* (<1.0) mg/dL Total Protein 7.5 (6.4-8.2) g/dl Albumin 3.1 L (3.4-5.0) g/dl Globulin 4.4 gm/dL Albumin/Globulin Ratio 0.7 L (1-2) Lipase (73-393) U/L TSH 3rd Generation 3.588 (0.516-4.13) uIU/mL HCG, Qual (NEGATIVE) Urine Opiates Screen Negative (NEGATIVE) Ur Buprenorphine Scrn Negative (NEGATIVE) Ur Oxycodone Screen Negative (NEGATIVE) Urine Methadone Screen Negative (NEGATIVE) Ur Propoxyphene Screen Negative (NEGATIVE) Ur Barbiturates Screen Negative (NEGATIVE) Ur Tricyclics Screen Negative (NEGATIVE) Ur Phencyclidine Scrn Negative (NEGATIVE) Ur Amphetamine Screen Negative (NEGATIVE) U Methamphetamines Scrn Negative (NEGATIVE) U Benzodiazepines Scrn Negative (NEGATIVE) U Cocaine Metab Screen Negative (NEGATIVE) U Marijuana (THC) Screen Negative (NEGATIVE) Ethyl Alcohol 0.00 (0.00) gm% 02/01/18 02/01/18 02/01/18 Range/Units 12:55 12:55 12:55 WBC (3.98-10.04) K/mm3 RBC (3.98-5.22) M/mm3 Hgb (11.2-15.7) gm/L Hct (34.1-44.9) % MCV (79.4-94.8) fl MCH (25.6-32.2) pg MCHC (32.2-35.5) g/dl RDW Std Deviation (36.4-46.3) fL Plt Count (182-369) K/mm3 MPV (9.4-12.3) fl Neutrophils % (Manual) (40-60) % Band Neutrophils % (0-10) % Lymphocytes % (Manual) (20-40) % Atypical Lymphs % % Monocytes % (Manual) (2-10) % Eosinophils % (Manual) (0.7-5.8) % Basophils % (Manual) (0.1-1.2) Platelet Estimate Plt Morphology Comment RBC Morph Comment PT 10.3 (9.5-12.1) SECONDS INR 0.94 APTT 29 (24-31) SECONDS D-Dimer, Quantitative 7.93 H (0.19-0.50) mg/L Sodium (136-145) mEq/L Potassium (3.5-5.1) mEq/L Chloride (98-107) mEq/L Carbon Dioxide (21-32) mEq/L Anion Gap (5-15) BUN (7-18) mg/dL Creatinine (0.55-1.02) mg/dL Est Cr Clr Drug Dosing mL/min Estimated GFR (MDRD) (>60) mL/min BUN/Creatinine Ratio (14-18) Glucose (74-106) mg/dL Calcium (8.5-10.1) mg/dL Total Bilirubin (0.2-1.0) mg/dL AST (15-37) U/L ALT (14-59) U/L Alkaline Phosphatase (46-116) U/L C-Reactive Protein (<1.0) mg/dL Total Protein (6.4-8.2) g/dl Albumin (3.4-5.0) g/dl Globulin gm/dL Albumin/Globulin Ratio (1-2) Lipase (73-393) U/L TSH 3rd Generation (0.516-4.13) uIU/mL HCG, Qual Negative (NEGATIVE) Urine Opiates Screen (NEGATIVE) Ur Buprenorphine Scrn (NEGATIVE) Ur Oxycodone Screen (NEGATIVE) Urine Methadone Screen (NEGATIVE) Ur Propoxyphene Screen (NEGATIVE) Ur Barbiturates Screen (NEGATIVE) Ur Tricyclics Screen (NEGATIVE) Ur Phencyclidine Scrn (NEGATIVE) Ur Amphetamine Screen (NEGATIVE) U Methamphetamines Scrn (NEGATIVE) U Benzodiazepines Scrn (NEGATIVE) U Cocaine Metab Screen (NEGATIVE) U Marijuana (THC) Screen (NEGATIVE) Ethyl Alcohol (0.00) gm% 02/01/18 Range/Units 12:55 WBC (3.98-10.04) K/mm3 RBC (3.98-5.22) M/mm3 Hgb (11.2-15.7) gm/L Hct (34.1-44.9) % MCV (79.4-94.8) fl MCH (25.6-32.2) pg MCHC (32.2-35.5) g/dl RDW Std Deviation (36.4-46.3) fL Plt Count (182-369) K/mm3 MPV (9.4-12.3) fl Neutrophils % (Manual) (40-60) % Band Neutrophils % (0-10) % Lymphocytes % (Manual) (20-40) % Atypical Lymphs % % Monocytes % (Manual) (2-10) % Eosinophils % (Manual) (0.7-5.8) % Basophils % (Manual) (0.1-1.2) Platelet Estimate Plt Morphology Comment RBC Morph Comment PT (9.5-12.1) SECONDS INR APTT (24-31) SECONDS D-Dimer, Quantitative (0.19-0.50) mg/L Sodium (136-145) mEq/L Potassium (3.5-5.1) mEq/L Chloride (98-107) mEq/L Carbon Dioxide (21-32) mEq/L Anion Gap (5-15) BUN (7-18) mg/dL Creatinine (0.55-1.02) mg/dL Est Cr Clr Drug Dosing mL/min Estimated GFR (MDRD) (>60) mL/min BUN/Creatinine Ratio (14-18) Glucose (74-106) mg/dL Calcium (8.5-10.1) mg/dL Total Bilirubin (0.2-1.0) mg/dL AST (15-37) U/L ALT (14-59) U/L Alkaline Phosphatase (46-116) U/L C-Reactive Protein (<1.0) mg/dL Total Protein (6.4-8.2) g/dl Albumin (3.4-5.0) g/dl Globulin gm/dL Albumin/Globulin Ratio (1-2) Lipase 44 L (73-393) U/L TSH 3rd Generation (0.516-4.13) uIU/mL HCG, Qual (NEGATIVE) Urine Opiates Screen (NEGATIVE) Ur Buprenorphine Scrn (NEGATIVE) Ur Oxycodone Screen (NEGATIVE) Urine Methadone Screen (NEGATIVE) Ur Propoxyphene Screen (NEGATIVE) Ur Barbiturates Screen (NEGATIVE) Ur Tricyclics Screen (NEGATIVE) Ur Phencyclidine Scrn (NEGATIVE) Ur Amphetamine Screen (NEGATIVE) U Methamphetamines Scrn (NEGATIVE) U Benzodiazepines Scrn (NEGATIVE) U Cocaine Metab Screen (NEGATIVE) U Marijuana (THC) Screen (NEGATIVE) Ethyl Alcohol (0.00) gm% Meds: Medications Discontinued Medications Generic Name Dose Route Start Last Admin Trade Name Freq PRN Reason Stop Dose Admin Al Hydroxide/Mg Hydroxide 30 0 ml 02/01/18 16:41 02/01/18 16:56 ml/ Lidocaine HCl 15 ml PO 02/01/18 16:42 45 ml ONETIME ONE Administration Heparin Sodium (Porcine) 5,000 units 02/01/18 16:42 02/01/18 16:55 Heparin Sodium IVPUSH 02/01/18 16:43 5,000 units ONETIME ONE Administration Protocol Sodium Chloride 1,000 mls @ 250 mls/hr 02/01/18 13:45 02/01/18 13:55 Normal Saline IV 250 mls/hr ASDIRECTED MARTA Administration Sodium Chloride 250 mls @ 75 mls/hr 02/01/18 14:00 Normal Saline IV ASDIRECTED MARTA Heparin Sodium/Dextrose 25,000 units in 500 mls @ 20 mls/hr 02/01/18 16:45 16:57 Heparin 25,000 Units In D5w 500 Ml IV 20 mls/hr TITRATE MARTA Administration Protocol 1,000 UNITS/HR Iopamidol 100 ml 02/01/18 14:00 02/01/18 14:23 Isovue-370 (76%) IVPUSH 02/01/18 14:01 100 ml ONETIME ONE Administration Ketorolac Tromethamine 60 mg 02/01/18 12:39 02/01/18 12:42 Toradol IM 02/01/18 12:40 60 mg ONETIME ONE Administration Sodium Chloride 10 ml 02/01/18 13:39 02/01/18 14:23 Saline Flush FLUSH 10 ml ASDIRECTED PRN Administration Keep Vein Open - Re-Assessments/Exams Free Text/Narrative Re-Assessment/Exam: Ordered Toradol 60 mg IM. Initial labs and studies include CBC, chem 14, CRP, d-dimer, hCG, chest x-ray two-view, and EKG. Patient states she is not . Do believe current symptoms are most likely muscle skeletal in nature. Reproducible with palpation and also abduction/adduction of the upper extremities against resistance. Toradol administered prior to being notified by nursing staff she has been coughing up blood. 1244 nursing staff is brought to my attention patient mentioned that she's been coughing of blood for the past few weeks. She drinks a fourth of vodka every other day for the past year. She is not throwing up any blood. I have ordered coag studies, serum EtOH, and urine drug tox. ECG normal sinus rhythmat at a rate of 90. 02/01/18 13:50 Per nursing staff patient had some blood with coughing. VSS. 02/01/18 14:41 CT chest PE protocol impression: Acute pulmonary embolism is in the lower lungs, right greater than left, small ground glass obesity in the right lung base likely represents area pulmonary infarct and or hemorrhage. I did speak to radiologists with [facility] for results. [address] Araujo requests transfer to [place]. Discussed results with patient. VSS. She requests transport to [facility]. 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 1538 Called [facility] and they will call back. 1621 [facility] has called back. I have spoken with Dr. Ravi Krause. She has accepted the patient. Requests heparin gtt. IV bolus of heparin and gtt ordered. Ambulance has been notified. Transfer paperwork completed. Departure - Departure Time of Disposition: 16:28 Disposition: DC/Tfer to [facility] 02 Reason for Transfer *Q: Other Condition: Good Clinical Impression: Pulmonary embolism and infarction, Hemoptysis Referrals: Norma Zazueta PA-C [Primary Care Provider] - Forms: ED Department Discharge - My Orders Last 24 Hours: My Active Orders 02/01/18 12:39 EKG Documentation Completion [RC] STAT Chest 1V Frontal [CR] Stat 02/01/18 12:50 DRUG SCREEN, URINE [URCHEM] Stat 02/01/18 13:39 Peripheral IV Care [RC] . DIRECTED Peripheral IV Insertion Adult [OM.PC] Routine - Assessment/Plan Last 24 Hours: My Active Orders 02/01/18 12:39 EKG Documentation Completion [RC] STAT Chest 1V Frontal [CR] Stat 02/01/18 12:50 DRUG SCREEN, URINE [URCHEM] Stat 02/01/18 13:39 Peripheral IV Care [RC] . DIRECTED Peripheral IV Insertion Adult [OM.PC] Routine
[2018-02-01] MEDS ORDERED: Sodium Chloride 0.9% 1,000 ML IV SCH (13:45)
[2018-02-01] MEDS: Sodium Chloride 0.9% 10 ML Syringe FLUSH PRN ×2 (13:55→14:23)
[2018-02-01] MEDS ORDERED: Iopamidol 755 Mg/ML 100 ML Bottle IVPUSH ONE (14:00)
[2018-02-01] MEDS ORDERED: Sodium Chloride 0.9% 250 ML IV SCH (14:00)
[2018-02-01] MEDS ORDERED: Alum Hydrox/Mag Hydrox/Simeth 30 ML, Lidocaine 2% 15 ML PO ONE ×2 (16:41)
[2018-02-01] MEDS ORDERED: Heparin Sodium 5,000 Units/ML Vial IVPUSH ONE (16:42)
[2018-02-01] MEDS ORDERED: Heparin Sodium/D5W 25,000 UNITS/500 ML BAG IV SCH (16:45)
--- NOTE | 2018-02-02 08:35 | CT ---
CT chest Technique: Multiple axial sections through the chest were obtained. Intravenous contrast was utilized. Study has been performed as a pulmonary angiogram protocol. Comparison: No prior chest CT or chest x-ray. Findings: Filling defects are seen within the subsegmental branches of the right lower lung compatible with pulmonary emboli. Additional pulmonary embolism are noted within the distal subsegmental branch of the right upper lung. Subsegmental filling defects compatible with pulmonary emboli also seen within the left base. Mediastinum and hilar regions show no adenopathy or mass. No pericardial thickening is seen. Visualized upper abdominal structures are within normal limits. No findings of right ventricular dysfunction seen at this time. Mild increased density noted within the right lung base. Lungs otherwise are clear. Bone window settings were reviewed which showed nothing acute within the visualized osseous structures. Impression: 1. Bilateral pulmonary emboli as noted above. No findings of right ventricular dysfunction seen. 2. Parenchymal density within the posterior right lung base either due to pulmonary hemorrhage or developing pulmonary infarct. 3. No additional abnormality seen on CT study of the chest. Diagnostic code #5 I agree with preliminary report issued by [employer] ([facility] preliminary report dictated on 02/01/18, 3:35 PM Central Time)
--- NOTE | 2018-02-03 13:21 | CR ---
Chest: Portable view of the chest was obtained. Comparison: Prior chest x-ray is not available. Heart size and mediastinum are normal. Lungs are clear. Bony structures are unremarkable. Impression: 1. Nothing acute is seen on portable chest x-ray. Diagnostic code #1
== END 2018-02-01 17:54 ==
LOC: JD.ED 11:55
DX: I26.99 Other pulmonary embolism without acute cor pulmonale (principal); R04.2 Hemoptysis; E03.9 Hypothyroidism, unspecified; F17.210 Nicotine dependence, cigarettes, uncomplicated; Z79.899 Other long term (current) drug therapy; F32.9 Major depressive disorder, single episode, unspecified
CPT/HCPCS: 36415; 71045; 71275; 80053; 80306; 83690; 84443; 84703; 85007; 85027; 85379; 85610; 85730; 86140; 93005; 96361; 96365; 96375; 96376; 99285; A9270; G0480; J1644; J1885; J7040; J7050; Q9967

== ENCOUNTER 2019-01-21 12:11 | Emergency (ER) | payer MEDICAID ==
[2019-01-21 12:20] VITALS: BP 123/60
[2019-01-21] MEDS ORDERED: Sodium Chloride 0.9% 10 ML Syringe FLUSH PRN (12:45)
[2019-01-21] MEDS ORDERED: Ketorolac 30 MG/ML SDV IVPUSH ONE (14:04)
[2019-01-21] MEDS ORDERED: Ondansetron 4 MG/2 ML SDV IVPUSH ONE (14:04)
--- NOTE | 2019-01-21 15:33 | EDM.PDOC ---
ED HPI GENERAL MEDICAL PROBLEM - General Chief Complaint: Chest Pain Stated Complaint: CHEST PAIN FOR THE WHOLE WEEK HISTORY OF PE'S Time Seen by Provider: 01/21/19 12:30 Source of Information: Reports: Patient History Limitations: Reports: No Limitations - History of Present Illness INITIAL COMMENTS - FREE TEXT/NARRATIVE: 23-year-old female presents for evaluation and treatment of chest pain. Patient reports she's been experiencing chest pain for the last week. She rates the pain as 7 out of 10. She states is located in the center of her chest but it does radiate out to under her bilateral breast. She reports that it is pleuritic in nature. She is currently rating the pain as a 5 out of 10. She reports associated symptoms of headaches, nausea and dyspnea on exertion but she does not have any shortness of breath at rest. No lightheadedness, dizziness , syncope or vomiting. Patient is concerned she has a PE today. Patient history of factor V leaving. She is normally on eliqus 5mg twice a day. States she has not taken her medication in the last week as she has run out. Patient is on control. She is currently on the nexplanon. Patient is a previous smoker and has been smoking recently, states she's been smoking a few cigarettes a day. Patient reports she has had a minor cough recently and been sick with cold symptoms for about 1 week. Primary care provider is Norma Zazueta. Middle Chest Pain Score (Numeric/FACES): 7 - Related Data Allergies Allergy/AdvReac Type Severity Reaction Status Date / Time No Known Allergies Allergy Verified 01/21/19 12:20 Home Meds: Home Meds Levothyroxine [Synthroid] 50 mcg PO ACBREAKFAST 02/01/18 [History] Apixaban [Eliquis] 5 mg PO BID 04/10/18 [History] Past Medical History - Past Health History Medical/Surgical History: Denies Medical/Surgical History HEENT History: Reports: None Respiratory History: Reports: PE Genitourinary History: Reports: Hydronephrosis, Other (See Below) Other Genitourinary History: vesico ureteral reflux with reflux nephropathy, [employer] History: Reports: Psychiatric History: Reports: Mood Swings Endocrine/Metabolic History: Reports: Hypothyroidism Hematologic History: Reports: Anticoagulation Therapy, Other (See Below) Other Hematologic History: Factor V Leiden mutation - Past Surgical History HEENT Surgical History: Reports: Adenoidectomy, Tonsillectomy Female Surgical History: Reports: None Social & Family History - Family History Other HEENT Family History: see history for details of family history - Tobacco Use Smoking Status *Q: Current Some Day Smoker Years of Tobacco use: 3 Packs/Tins Daily: 0.2 - Caffeine Use Caffeine Use: Reports: Energy Drinks ED ROS GENERAL - Review of Systems Review Of Systems: See Below Constitutional: Denies: Fever, Chills Respiratory: Reports: Pleuritic Chest Pain, Cough. Denies: Shortness of Breath Cardiovascular: Reports: Chest Pain, Dyspnea on Exertion. Denies: Lightheadedness Neurological: Denies: Dizziness, Syncope ED EXAM, GENERAL - Physical Exam Exam: See Below Exam Limited By: No Limitations General Appearance: Alert, WD/WN, No Apparent Distress, Obese Throat/Mouth: Normal Inspection, Normal Voice, No Airway Compromise Respiratory/Chest: No Respiratory Distress, Lungs Clear, Normal Breath Sounds Cardiovascular: Normal Peripheral Pulses, Regular Rate, Rhythm, No Murmur GI/Abdominal: Soft, Non-Tender Neurological: Alert, Oriented, Normal Cognition Psychiatric: Normal Affect, Normal Mood Skin Exam: Warm, Dry, Normal Color EKG INTERPRETATION EKG Date: 01/21/19 Time: 12:55 Rhythm: Other (inus bradycardia) Rate (Beats/Min): 49 [place]: Normal P-Wave: Present QRS: Normal ST-T: Normal QT: Normal EKG Interpretation Comments: Sinus bradycardia at 49 bpm. No acute changes. Reviewed by myself and dr. Mahoney. Course - Vital Signs Last Recorded V/S: Last Vital Signs Temp 98.7 F 01/21/19 12:18 Pulse 60 01/21/19 12:18 Resp 18 01/21/19 12:18 BP 123/60 01/21/19 12:18 Pulse Ox 97 01/21/19 12:18 - Orders/Labs/Meds Orders: Active Orders 24 hr Category Date Time Status Cardiac Monitoring [RC] . DIRECTED Care 01/21/19 12:45 Active EKG 12 Lead [EKG Documentation Completion] [RC] STAT Care 01/21/19 12:47 Active Peripheral IV Care [RC] . DIRECTED Care 01/21/19 12:46 Active Chest 2V [CR] Stat Exams 01/21/19 12:45 Taken Peripheral IV Insertion Adult [OM.PC] Routine Oth 01/21/19 12:45 Ordered Labs: Laboratory Tests 01/21/19 01/21/19 01/21/19 Range/Units 13:08 13:08 13:08 WBC 6.47 (3.98-10.04) K/mm3 RBC 5.11 (3.98-5.22) M/mm3 Hgb 14.6 (11.2-15.7) gm/L Hct 42.2 (34.1-44.9) % MCV 82.6 (79.4-94.8) fl MCH 28.6 (25.6-32.2) pg MCHC 34.6 (32.2-35.5) g/dl RDW Std Deviation 38.6 (36.4-46.3) fL Plt Count 245 (182-369) K/mm3 MPV 9.4 (9.4-12.3) fl Neut % (Auto) 64.6 (34.0-71.1) % Lymph % (Auto) 26.4 (19.3-51.7) % Lyon % (Auto) 7.0 (4.7-12.5) % Eos % (Auto) 1.4 (0.7-5.8) Baso % (Auto) 0.3 (0.1-1.2) % Neut # (Auto) 4.18 (1.56-6.13) K/mm3 Lymph # (Auto) 1.71 (1.18-3.74) K/mm3 Lyon # (Auto) 0.45 H (0.24-0.36) K/mm3 Eos # (Auto) 0.09 (0.04-0.36) K/mm3 Baso # (Auto) 0.02 (0.01-0.08) K/mm3 PT 11.1 (9.5-12.1) SECONDS INR 1.02 APTT 32 H (24-31) SECONDS D-Dimer, Quantitative 0.21 (0.19-0.50) mg/L Sodium 138 (136-145) mEq/L Potassium 4.1 (3.5-5.1) mEq/L Chloride 105 (98-107) mEq/L Carbon Dioxide 25 (21-32) mEq/L Anion Gap 12.1 (5-15) BUN 17 (7-18) mg/dL Creatinine 1.0 (0.55-1.02) mg/dL Est Cr Clr Drug Dosing 76.85 mL/min Estimated GFR (MDRD) > 60 (>60) mL/min BUN/Creatinine Ratio 17.0 (14-18) Glucose 98 (74-106) mg/dL Calcium 9.0 (8.5-10.1) mg/dL Total Bilirubin 0.8 (0.2-1.0) mg/dL AST 12 L (15-37) U/L ALT 20 (14-59) U/L Alkaline Phosphatase 80 (46-116) U/L Total Protein 7.5 (6.4-8.2) g/dl Albumin 3.9 (3.4-5.0) g/dl Globulin 3.6 gm/dL Albumin/Globulin Ratio 1.1 (1-2) TSH 3rd Generation 2.201 (0.358-3.74) uIU/mL Urine HCG, Qual (NEGATIVE) 01/21/19 Range/Units 13:41 WBC (3.98-10.04) K/mm3 RBC (3.98-5.22) M/mm3 Hgb (11.2-15.7) gm/L Hct (34.1-44.9) % MCV (79.4-94.8) fl MCH (25.6-32.2) pg MCHC (32.2-35.5) g/dl RDW Std Deviation (36.4-46.3) fL Plt Count (182-369) K/mm3 MPV (9.4-12.3) fl Neut % (Auto) (34.0-71.1) % Lymph % (Auto) (19.3-51.7) % Lyon % (Auto) (4.7-12.5) % Eos % (Auto) (0.7-5.8) Baso % (Auto) (0.1-1.2) % Neut # (Auto) (1.56-6.13) K/mm3 Lymph # (Auto) (1.18-3.74) K/mm3 Lyon # (Auto) (0.24-0.36) K/mm3 Eos # (Auto) (0.04-0.36) K/mm3 Baso # (Auto) (0.01-0.08) K/mm3 PT (9.5-12.1) SECONDS INR APTT (24-31) SECONDS D-Dimer, Quantitative (0.19-0.50) mg/L Sodium (136-145) mEq/L Potassium (3.5-5.1) mEq/L Chloride (98-107) mEq/L Carbon Dioxide (21-32) mEq/L Anion Gap (5-15) BUN (7-18) mg/dL Creatinine (0.55-1.02) mg/dL Est Cr Clr Drug Dosing mL/min Estimated GFR (MDRD) (>60) mL/min BUN/Creatinine Ratio (14-18) Glucose (74-106) mg/dL Calcium (8.5-10.1) mg/dL Total Bilirubin (0.2-1.0) mg/dL AST (15-37) U/L ALT (14-59) U/L Alkaline Phosphatase (46-116) U/L Total Protein (6.4-8.2) g/dl Albumin (3.4-5.0) g/dl Globulin gm/dL Albumin/Globulin Ratio (1-2) TSH 3rd Generation (0.358-3.74) uIU/mL Urine HCG, Qual Negative (NEGATIVE) Meds: Medications Discontinued Medications Generic Name Dose Route Start Last Admin Trade Name Freq PRN Reason Stop Dose Admin Ketorolac Tromethamine 30 mg 01/21/19 14:04 01/21/19 14:12 Toradol IVPUSH 01/21/19 14:05 30 mg ONETIME ONE Administration Ondansetron HCl 4 mg 01/21/19 14:04 01/21/19 14:12 Zofran IVPUSH 01/21/19 14:05 4 mg ONETIME ONE Administration Sodium Chloride 10 ml 01/21/19 12:45 01/21/19 13:23 Saline Flush FLUSH 10 ml ASDIRECTED PRN Administration Keep Vein Open - Radiology Interpretation Free Text/Narrative:: Chest: 2 views of the chest were obtained. Comparison: Prior chest x-ray of 04/10/18. Heart size and mediastinum are normal. Lungs are clear. Bony structures are unremarkable. Impression: 1. Nothing acute is appreciated on 2 view chest x-ray. - Re-Assessments/Exams Free Text/Narrative Re-Assessment/Exam: 01/21/19 15:31 Reviewed the labs, EKG and imaging with the patient. Will discharge home today with instructions for symptomatic care. Suspect pleurisy as the cause. Discharge instruction as documented. Departure - Departure Time of Disposition: 15:32 Disposition: Home, Self-Care 01 Condition: Good Clinical Impression: Pleurisy - Discharge Information *PRESCRIPTION DRUG MONITORING PROGRAM REVIEWED*: No *COPY OF PRESCRIPTION DRUG MONITORING REPORT IN PATIENT VARGAS: No Instructions: Pleurisy, [id number] Referrals: Norma Zazueta PA-C [Primary Care Provider] - Forms: ED Department Discharge Additional Instructions: Follow-up with your primary care provider next week for your throat. You may require an ultrasound of your thyroid for further evaluation. Recommend taking [id number] ibuprofen or Tylenol for pain. Make sure drink plenty of fluids. Recommend gatorade or powerade for the electrolytes. please return to the ER if your symptoms change or worsen - My Orders Last 24 Hours: My Active Orders 01/21/19 12:45 Cardiac Monitoring [RC] . DIRECTED Chest 2V [CR] Stat Peripheral IV Insertion Adult [OM.PC] Routine 01/21/19 12:46 Peripheral IV Care [RC] . DIRECTED 01/21/19 12:47 EKG 12 Lead [EKG Documentation Completion] [RC] STAT - Assessment/Plan Last 24 Hours: My Active Orders 01/21/19 12:45 Cardiac Monitoring [RC] . DIRECTED Chest 2V [CR] Stat Peripheral IV Insertion Adult [OM.PC] Routine 01/21/19 12:46 Peripheral IV Care [RC] . DIRECTED 01/21/19 12:47 EKG 12 Lead [EKG Documentation Completion] [RC] STAT
--- NOTE | 2019-01-22 06:08 | CR ---
Chest: Two views of the chest were obtained. Comparison: Prior chest x-ray of 04/10/18. Heart size and mediastinum are normal. Lungs are clear. Bony structures are unremarkable. Impression: 1. Nothing acute is appreciated on two-view chest x-ray. Diagnostic code #1
== END 2019-01-21 15:42 | disposition home or self-care (01) ==
LOC: JD.ED 12:11
DX: R09.1 Pleurisy (principal); F17.210 Nicotine dependence, cigarettes, uncomplicated; Z79.899 Other long term (current) drug therapy
CPT/HCPCS: 36415; 71046; 80053; 81025; 84443; 85025; 85379; 85610; 85730; 93005; 96374; 96375; 99284; J1885; J2405; 93010

== ENCOUNTER 2020-12-19 15:43 | Emergency (ER) | payer MEDICAID ==
--- NOTE | 2020-12-19 16:14 | EDM.PDOC ---
ED HPI GENERAL MEDICAL PROBLEM - General Chief Complaint: Drug or Alcohol Abuse Stated Complaint: SOB/WITHDRAWAL Time Seen by Provider: 12/19/20 16:06 Source of Information: Reports: Patient, RN Notes Reviewed - History of Present Illness INITIAL COMMENTS - FREE TEXT/NARRATIVE: 25 yr old female presents to ED with concerns about drug abuse and dependency. 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 She states she would like to stop for fear of "loosing her son" who is 4 yrs old currently living with her mother. She does not take any regular prescription medications. Has been drinking water, has not been eating well. Generalized Pain Score (Numeric/FACES): 10 - Related Data Allergies Allergy/AdvReac Type Severity Reaction Status Date / Time No Known Allergies Allergy Verified 12/19/20 15:57 Home Meds: Home Meds . 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: Psychiatric History: Reports: Addiction, Mood Swings Endocrine/Metabolic History: Reports: Hypothyroidism Hematologic History: Reports: Anticoagulation Therapy, Other (See Below) Other Hematologic History: Factor V Leiden mutation - Past Surgical History HEENT Surgical History: Reports: Adenoidectomy, Tonsillectomy Social & Family History - Family History Other HEENT Family History: see history for details of family history - Tobacco Use Tobacco Use Status *Q: Current Every Day Tobacco User Years of Tobacco use: 4 Packs/Tins Daily: 0.5 - Caffeine Use Caffeine Use: Reports: Soda - Recreational Drug Use Recreational Drug Use: Yes Recreational Drug Type: Reports: Fentanyl, Heroin, Methamphetamine ED ROS GENERAL - Review of Systems Review Of Systems: See Below Constitutional: Reports: Malaise, Weakness, Fatigue. Denies: Fever, Chills HEENT: Reports: No Symptoms Respiratory: Reports: Cough. Denies: Shortness of Breath Cardiovascular: Reports: Palpitations. Denies: Chest Pain GI/Abdominal: Reports: Nausea. Denies: Diarrhea, Vomiting Skin: Reports: No Symptoms Neurological: Reports: Dizziness, Weakness ED EXAM, GENERAL - Physical Exam Exam: See Below General Appearance: Alert, Anxious Eye Exam: Bilateral Eye: PERRL Throat/Mouth: Other (oral mucosa dry) Head: Atraumatic Neck: Supple Respiratory/Chest: No Respiratory Distress, Lungs Clear, Normal Breath Sounds. No: Rhonchi, Wheezing Cardiovascular: Tachycardia GI/Abdominal: Soft, Non-Tender Extremities: Normal Inspection. No: Leg Pain, Increased Warmth, Redness Neurological: Alert, Oriented, No Motor/Sensory Deficits Psychiatric: Anxious Skin Exam: Warm, Dry, Normal Color #1 Interpretation EKG Date: 12/19/20 Rhythm: Other (S tach, rate 131) Rate (Beats/Min): 131 [place]: Normal P-Wave: Present QRS: Normal ST-T: Depressed (t wave inversions multiple leads) Course - Vital Signs Last Recorded V/S: Last Vital Signs Temp 97.8 F 12/20/20 10:46 Pulse 90 12/20/20 10:46 Resp 18 12/20/20 10:46 BP 86/56 L 12/20/20 10:46 Pulse Ox 98 12/20/20 10:46 - Orders/Labs/Meds Orders: Active Orders 24 hr Category Date Time Status EKG 12 Lead [EKG Documentation Completion] [RC] ROUTINE Care 12/19/20 15:58 Active Peripheral IV Care [RC] . DIRECTED Care 12/19/20 16:16 Active Consult to Case Management/Commercial Horticulture Instructor [CONS] Cons 12/20/20 06:07 Active Routine Sodium Chloride 0.9% [Normal Saline] 1,000 ml Med 12/19/20 16:30 Active IV ONETIME Sodium Chloride 0.9% [Saline Flush] Med 12/19/20 16:16 Active 10 ml FLUSH ASDIRECTED PRN Peripheral IV Insertion Adult [OM.PC] Stat Oth 12/19/20 16:16 Ordered Medication Orders Sodium Chloride (Normal Saline) 1,000 mls @ 999 mls/hr IV ONETIME MARTA Last Infusion: 12/19/20 17:58 Dose: 999 mls/hr Documented by: Admin: 12/19/20 16:41 Dose: 999 mls/hr Documented by: MERVIN Sodium Chloride (Sodium Chloride 0.9% 10 Ml Syringe) 10 ml FLUSH ASDIRECTED PRN PRN Reason: Keep Vein Open Last Admin: 12/19/20 16:42 Dose: 10 ml Documented by: MERVIN Labs: Laboratory Tests 12/19/20 12/19/20 12/19/20 Range/Units 16:30 16:30 16:30 WBC 0.94 L* (3.98-10.04) K/mm3 RBC 4.97 (3.98-5.22) M/mm3 Hgb 14.6 (11.2-15.7) gm/dl Hct 42.5 (34.1-44.9) % MCV 85.5 (79.4-94.8) fl MCH 29.4 (25.6-32.2) pg MCHC 34.4 (32.2-35.5) g/dl RDW Std Deviation 40.4 (36.4-46.3) fL Plt Count 142 L D (182-369) K/mm3 MPV 8.6 L (9.4-12.3) fl Neut % (Auto) 85.0 H (34.0-71.1) % Lymph % (Auto) 12.8 L (19.3-51.7) % [place] % (Auto) 1.1 L (4.7-12.5) % Eos % (Auto) 0 L (0.7-5.8) Baso % (Auto) 0.0 L (0.1-1.2) % Neut # (Auto) 0.80 L (1.56-6.13) K/mm3 Lymph # (Auto) 0.12 L (1.18-3.74) K/mm3 [place] # (Auto) 0.01 L (0.24-0.36) K/mm3 Eos # (Auto) 0.00 L (0.04-0.36) K/mm3 Baso # (Auto) 0.00 L (0.01-0.08) K/mm3 Manual Slide Review Abnormal smear Sodium 143 (136-145) mEq/L Potassium 3.7 (3.5-5.1) mEq/L Chloride 105 (98-107) mEq/L Carbon Dioxide 25 (21-32) mEq/L Anion Gap 16.7 H (5-15) BUN 16 (7-18) mg/dL Creatinine 1.1 H (0.55-1.02) mg/dL Est Cr Clr Drug Dosing 71.57 mL/min Estimated GFR (MDRD) > 60 (>60) mL/min BUN/Creatinine Ratio 14.5 (14-18) Glucose 96 (74-106) mg/dL Lactic Acid (0.4-2.0) mmol/L Calcium 8.8 (8.5-10.1) mg/dL Magnesium 1.4 L (1.8-2.4) mg/dl Total Bilirubin 1.5 H (0.2-1.0) mg/dL AST 67 H (15-37) U/L ALT 43 (14-59) U/L Alkaline Phosphatase 58 (46-116) U/L Total Protein 6.4 (6.4-8.2) g/dl Albumin 3.8 (3.4-5.0) g/dl Globulin 2.6 gm/dL Albumin/Globulin Ratio 1.5 (1-2) Urine Color (Yellow) Urine Appearance (Clear) Urine pH (5.0-8.0) Ur Specific [place] (1.005-1.030) Urine Protein (Negative) Urine Glucose (UA) (Negative) Urine Ketones (Negative) Urine Occult Blood (Negative) Urine Nitrite (Negative) Urine Bilirubin (Negative) Urine Urobilinogen (0.2-1.0) Ur Leukocyte Esterase (Negative) Salicylates (2.8-20) mg/dL Urine Opiates Screen (LFBTZO=021) Ur Buprenorphine Scrn (CUTOFF=10) Ur Oxycodone Screen (BSE5MW=460) Urine Methadone Screen (PAUSQU=965) Ur Propoxyphene Screen (QNMYBT=565) Acetaminophen (10-30) ug/mL Ur Barbiturates Screen (WKYQIF=410) Ur Tricyclics Screen (BYQRIM=017) Ur Phencyclidine Scrn (CUTOFF=25) Ur Amphetamine Screen (YZWPNZ=116) U Methamphetamines Scrn (BPFJHI=445) U Benzodiazepines Scrn (LNQPET=165) U Cocaine Metab Screen (HMCYIT=835) U Marijuana (THC) Screen (CUTOFF=50) Ethyl Alcohol (0.00) gm% SARS-CoV-2 RNA (VICKY) (NEGATIVE) 12/19/20 12/19/20 12/19/20 Range/Units 16:30 16:30 16:30 WBC (3.98-10.04) K/mm3 RBC (3.98-5.22) M/mm3 Hgb (11.2-15.7) gm/dl Hct (34.1-44.9) % MCV (79.4-94.8) fl MCH (25.6-32.2) pg MCHC (32.2-35.5) g/dl RDW Std Deviation (36.4-46.3) fL Plt Count (182-369) K/mm3 MPV (9.4-12.3) fl Neut % (Auto) (34.0-71.1) % Lymph % (Auto) (19.3-51.7) % [place] % (Auto) (4.7-12.5) % Eos % (Auto) (0.7-5.8) Baso % (Auto) (0.1-1.2) % Neut # (Auto) (1.56-6.13) K/mm3 Lymph # (Auto) (1.18-3.74) K/mm3 [place] # (Auto) (0.24-0.36) K/mm3 Eos # (Auto) (0.04-0.36) K/mm3 Baso # (Auto) (0.01-0.08) K/mm3 Manual Slide Review Sodium (136-145) mEq/L Potassium (3.5-5.1) mEq/L Chloride (98-107) mEq/L Carbon Dioxide (21-32) mEq/L Anion Gap (5-15) BUN (7-18) mg/dL Creatinine (0.55-1.02) mg/dL Est Cr Clr Drug Dosing mL/min Estimated GFR (MDRD) (>60) mL/min BUN/Creatinine Ratio (14-18) Glucose (74-106) mg/dL Lactic Acid (0.4-2.0) mmol/L Calcium (8.5-10.1) mg/dL Magnesium (1.8-2.4) mg/dl Total Bilirubin (0.2-1.0) mg/dL AST (15-37) U/L ALT (14-59) U/L Alkaline Phosphatase (46-116) U/L Total Protein (6.4-8.2) g/dl Albumin (3.4-5.0) g/dl Globulin gm/dL Albumin/Globulin Ratio (1-2) Urine Color (Yellow) Urine Appearance (Clear) Urine pH (5.0-8.0) Ur Specific [place] (1.005-1.030) Urine Protein (Negative) Urine Glucose (UA) (Negative) Urine Ketones (Negative) Urine Occult Blood (Negative) Urine Nitrite (Negative) Urine Bilirubin (Negative) Urine Urobilinogen (0.2-1.0) Ur Leukocyte Esterase (Negative) Salicylates < 0.2 L (2.8-20) mg/dL Urine Opiates Screen (TBCVAV=097) Ur Buprenorphine Scrn (CUTOFF=10) Ur Oxycodone Screen (MOD9CJ=965) Urine Methadone Screen (SSJQUK=068) Ur Propoxyphene Screen (PESZQS=590) Acetaminophen 0 L (10-30) ug/mL Ur Barbiturates Screen (XWLDBN=142) Ur Tricyclics Screen (PADAWB=247) Ur Phencyclidine Scrn (CUTOFF=25) Ur Amphetamine Screen (FDMAUI=718) U Methamphetamines Scrn (QCCPNZ=391) U Benzodiazepines Scrn (LJNLZM=888) U Cocaine Metab Screen (OEMYNI=586) U Marijuana (THC) Screen (CUTOFF=50) Ethyl Alcohol 0.00 (0.00) gm% SARS-CoV-2 RNA (VICKY) (NEGATIVE) 12/20/20 12/20/20 12/20/20 Range/Units 02:15 09:21 10:32 WBC (3.98-10.04) K/mm3 RBC (3.98-5.22) M/mm3 Hgb (11.2-15.7) gm/dl Hct (34.1-44.9) % MCV (79.4-94.8) fl MCH (25.6-32.2) pg MCHC (32.2-35.5) g/dl RDW Std Deviation (36.4-46.3) fL Plt Count (182-369) K/mm3 MPV (9.4-12.3) fl Neut % (Auto) (34.0-71.1) % Lymph % (Auto) (19.3-51.7) % [place] % (Auto) (4.7-12.5) % Eos % (Auto) (0.7-5.8) Baso % (Auto) (0.1-1.2) % Neut # (Auto) (1.56-6.13) K/mm3 Lymph # (Auto) (1.18-3.74) K/mm3 [place] # (Auto) (0.24-0.36) K/mm3 Eos # (Auto) (0.04-0.36) K/mm3 Baso # (Auto) (0.01-0.08) K/mm3 Manual Slide Review Sodium (136-145) mEq/L Potassium (3.5-5.1) mEq/L Chloride (98-107) mEq/L Carbon Dioxide (21-32) mEq/L Anion Gap (5-15) BUN (7-18) mg/dL Creatinine (0.55-1.02) mg/dL Est Cr Clr Drug Dosing mL/min Estimated GFR (MDRD) (>60) mL/min BUN/Creatinine Ratio (14-18) Glucose (74-106) mg/dL Lactic Acid (0.4-2.0) mmol/L Calcium (8.5-10.1) mg/dL Magnesium (1.8-2.4) mg/dl Total Bilirubin (0.2-1.0) mg/dL AST (15-37) U/L ALT (14-59) U/L Alkaline Phosphatase (46-116) U/L Total Protein (6.4-8.2) g/dl Albumin (3.4-5.0) g/dl Globulin gm/dL Albumin/Globulin Ratio (1-2) Urine Color Yellow (Yellow) Urine Appearance Clear (Clear) Urine pH 6.0 (5.0-8.0) Ur Specific [place] 1.020 (1.005-1.030) Urine Protein Negative (Negative) Urine Glucose (UA) Negative (Negative) Urine Ketones Negative (Negative) Urine Occult Blood Negative (Negative) Urine Nitrite Negative (Negative) Urine Bilirubin Negative (Negative) Urine Urobilinogen 0.2 (0.2-1.0) Ur Leukocyte Esterase Negative (Negative) Salicylates (2.8-20) mg/dL Urine Opiates Screen Presumptive positive H (OFWUKX=532) Ur Buprenorphine Scrn Negative (CUTOFF=10) Ur Oxycodone Screen Negative (ECQ4RM=998) Urine Methadone Screen Negative (DLJJLO=312) Ur Propoxyphene Screen Negative (PHSXSJ=975) Acetaminophen (10-30) ug/mL Ur Barbiturates Screen Negative (OZFIPG=899) Ur Tricyclics Screen Negative (MCFSWD=831) Ur Phencyclidine Scrn Negative (CUTOFF=25) Ur Amphetamine Screen Presumptive positive H (DUDDGH=321) U Methamphetamines Scrn Presumptive positive H (YAFIJP=427) U Benzodiazepines Scrn Presumptive positive H (LBUIYI=016) U Cocaine Metab Screen Negative (ZMEVZX=687) U Marijuana (THC) Screen Presumptive positive H (CUTOFF=50) Ethyl Alcohol (0.00) gm% SARS-CoV-2 RNA (VICKY) Negative (NEGATIVE) 12/20/20 Range/Units 10:53 WBC (3.98-10.04) K/mm3 RBC (3.98-5.22) M/mm3 Hgb (11.2-15.7) gm/dl Hct (34.1-44.9) % MCV (79.4-94.8) fl MCH (25.6-32.2) pg MCHC (32.2-35.5) g/dl RDW Std Deviation (36.4-46.3) fL Plt Count (182-369) K/mm3 MPV (9.4-12.3) fl Neut % (Auto) (34.0-71.1) % Lymph % (Auto) (19.3-51.7) % [place] % (Auto) (4.7-12.5) % Eos % (Auto) (0.7-5.8) Baso % (Auto) (0.1-1.2) % Neut # (Auto) (1.56-6.13) K/mm3 Lymph # (Auto) (1.18-3.74) K/mm3 [place] # (Auto) (0.24-0.36) K/mm3 Eos # (Auto) (0.04-0.36) K/mm3 Baso # (Auto) (0.01-0.08) K/mm3 Manual Slide Review Sodium (136-145) mEq/L Potassium (3.5-5.1) mEq/L Chloride (98-107) mEq/L Carbon Dioxide (21-32) mEq/L Anion Gap (5-15) BUN (7-18) mg/dL Creatinine (0.55-1.02) mg/dL Est Cr Clr Drug Dosing mL/min Estimated GFR (MDRD) (>60) mL/min BUN/Creatinine Ratio (14-18) Glucose (74-106) mg/dL Lactic Acid 1.6 (0.4-2.0) mmol/L Calcium (8.5-10.1) mg/dL Magnesium (1.8-2.4) mg/dl Total Bilirubin (0.2-1.0) mg/dL AST (15-37) U/L ALT (14-59) U/L Alkaline Phosphatase (46-116) U/L Total Protein (6.4-8.2) g/dl Albumin (3.4-5.0) g/dl Globulin gm/dL Albumin/Globulin Ratio (1-2) Urine Color (Yellow) Urine Appearance (Clear) Urine pH (5.0-8.0) Ur Specific [place] (1.005-1.030) Urine Protein (Negative) Urine Glucose (UA) (Negative) Urine Ketones (Negative) Urine Occult Blood (Negative) Urine Nitrite (Negative) Urine Bilirubin (Negative) Urine Urobilinogen (0.2-1.0) Ur Leukocyte Esterase (Negative) Salicylates (2.8-20) mg/dL Urine Opiates Screen (OKBDNE=950) Ur Buprenorphine Scrn (CUTOFF=10) Ur Oxycodone Screen (XHO3KI=670) Urine Methadone Screen (ZXVLDR=984) Ur Propoxyphene Screen (IAFFAE=847) Acetaminophen (10-30) ug/mL Ur Barbiturates Screen (TKBINH=669) Ur Tricyclics Screen (TPFCIQ=935) Ur Phencyclidine Scrn (CUTOFF=25) Ur Amphetamine Screen (FALYFU=606) U Methamphetamines Scrn (OASRWD=615) U Benzodiazepines Scrn (JEBMLI=769) U Cocaine Metab Screen (CANYHN=564) U Marijuana (THC) Screen (CUTOFF=50) Ethyl Alcohol (0.00) gm% SARS-CoV-2 RNA (VICKY) (NEGATIVE) Meds: Medications Generic Name Dose Route Start Last Admin Trade Name Freq PRN Reason Stop Dose Admin Sodium Chloride 1,000 mls @ 999 mls/hr 12/19/20 16:30 12/19/20 17:58 Normal Saline IV Infused ONETIME MARTA Infusion Sodium Chloride 10 ml 12/19/20 16:16 12/19/20 16:42 Sodium Chloride 0.9% 10 Ml Syringe FLUSH 10 ml ASDIRECTED PRN Administration Keep Vein Open Discontinued Medications Generic Name Dose Route Start Last Admin Trade Name Joi PRN Reason Stop Dose Admin Acetaminophen 650 mg 12/20/20 03:16 12/20/20 03:22 Acetaminophen 325 Mg Tab PO 12/20/20 03:17 650 mg NOW ONE Administration Acetaminophen 975 mg 12/20/20 08:20 Acetaminophen 325 Mg Tab PO 12/20/20 08:21 NOW ONE Clonidine HCl 0.1 mg 12/19/20 17:32 12/19/20 17:57 Clonidine 0.1 Mg Tab PO 12/19/20 17:33 0.1 mg ONETIME ONE Administration Clonidine HCl 0.1 mg 12/20/20 08:20 12/20/20 11:44 Clonidine 0.1 Mg Tab PO 12/20/20 08:21 Not Given ONETIME ONE Magnesium Sulfate 4 gm/ Premix 50 mls @ 12.5 mls/hr 12/19/20 17:37 12/19/20 17:16 IV 12/19/20 21:36 12.5 mls/hr ONETIME ONE Administration Lactated Ringer's 1,000 mls @ 999 mls/hr 12/19/20 17:38 12/19/20 17:58 Ringers, Lactated IV 12/19/20 18:38 250 mls/hr .BOLUS ONE Administration Lactated Ringer's 1,000 mls @ 999 mls/hr 12/20/20 08:49 12/20/20 09:00 Ringers, Lactated IV 12/20/20 09:49 999 mls/hr .BOLUS ONE Administration Lactated Ringer's 1,000 mls @ 999 mls/hr 12/20/20 11:09 12/20/20 11:25 Ringers, Lactated IV 12/20/20 12:09 500 mls/hr .BOLUS ONE Administration Lorazepam 1 mg 12/19/20 16:24 12/19/20 16:42 Lorazepam 2 Mg/Ml Sdv IVPUSH 12/19/20 16:25 1 mg ONETIME ONE Administration Lorazepam 1 mg 12/19/20 17:32 12/19/20 17:57 Lorazepam 2 Mg/Ml Sdv IVPUSH 12/19/20 17:33 1 mg ONETIME ONE Administration Lorazepam 1 mg 12/20/20 08:19 12/20/20 11:44 Lorazepam 2 Mg/Ml Sdv IVPUSH 12/20/20 08:20 Not Given ONETIME ONE Ondansetron HCl 4 mg 12/19/20 16:24 12/19/20 16:41 Ondansetron 4 Mg/2 Ml Sdv IVPUSH 12/19/20 16:25 4 mg ONETIME ONE Administration - Re-Assessments/Exams Free Text/Narrative Re-Assessment/Exam: 12/19/20 17:58. WB C low at 940. Hgb, plts are good. A Gap 16.7, K+3.7, Mag 1.4. She has had 1 liter of NS, zofran IV, ativan 1 mg IV. She feels mildly better, noted to have some restless leg activity. Will start giving oral clonidine, will start with 0.1 mg PO. Will continue with IV LR, repeat 1 mg ativan IV and have also ordered magnesium 4 grams IV. Heart rate has improved from 131 on arrival to 115. BP continues to run upper 90's to around 100 systolic. 12/19/20 19:07. sleeping. A sister is here with her now. Wondering what our plan is going to be. Pt was very vague on arrival to ED. Hard to know what she really wants while under the influence of meth and opiods. It seems reasonable to continue to treat her sx overnight, Let her get some rest, Let one of our drug abuse social worker's visit with her in the morning and work out a safe reasonable plan. 12/19/20 19:17. I have visited with a sister that is here. She states patient came here to [place] about 2 months ago to "do drugs". She has a 4 yr old son in [place] with her mother who "now has been given custody of her 4 yr old son". Care transferred to Dr Ruiz for the night. I am back in the morning and will be able to resume care at that time. 07:20. Sleeping. Required no further treatment during the night other than a dose of tylenol. 08:15. Awake, restless, still very vague when asked questions, cannot tell me what she wants as far as further treatment. We have put a consult in for one of our social workers to try visit with her, help figure out a plan. 08:45. Scarlett unable to get much information either, does not feel she is able to help place her at this time, she will need medical admission for continued altered mental status. 09:00. Neuro exam repeated. No focal weakness. She continues to awaken to verbal questions. She knows where she is at, can give her birthdate, sons name. Does not know the month, thinks it is June. Cannot give her son's birthdate. Will check head CT prior to transfer. 09:45. Head CT is normal, covid neg, acetaminophen 0, salicylate 0.2. CXR nl, Ua nl. 10:00. Dr Lama, Hospitalist is kind of willing to accept but has concern with current BP of 86/52. She had been running in the 90's and low 100's systolic yesterday afternoon and last evening. She had no further IV fluid during the night. I did order a 1 liter bolus LR awhile ago but her vein is somewhat fragile, pt has a 22 gauge IV, running that at 500/hr at this time. IF BP does not come up over 90 will plan to send her to the [facility] ED. 12/20/20 11:22. lactic acid did come back at 1.6. Mental status unchanged. Will continue LR at 500/hr. EMS here for transport. Dr Monroy, [facility] ED does accept patient for transfer. Departure - Departure Time of Disposition: 11:10 Disposition: DC/Tfer to Acute Hospital 02 Condition: Serious Clinical Impression: Opioid intoxication Qualifiers: Complication of substance-induced condition: with delirium Qualified Code(s): F11.921 - Opioid use, unspecified with intoxication delirium Altered mental status Qualifiers: Altered mental status type: unspecified Qualified Code(s): R41.82 - Altered mental status, unspecified - Discharge Information Referrals: PCP,None [Primary Care Provider] - Forms: ED Department Discharge Sepsis Event Note (ED) - Evaluation Sepsis Screening Result: No Definite Risk - Focused Exam Vital Signs: Vital Signs Temp Pulse Resp BP Pulse Ox 12/20/20 10:46 97.8 F 90 18 86/56 L 98 12/20/20 08:45 95 18 84/51 L 95 - My Orders Last 24 Hours: My Active Orders 12/19/20 15:58 EKG 12 Lead [EKG Documentation Completion] [RC] ROUTINE 12/19/20 16:16 Peripheral IV Care [RC] . DIRECTED Sodium Chloride 0.9% [Saline Flush] 10 ml FLUSH ASDIRECTED PRN Peripheral IV Insertion Adult [OM.PC] Stat 12/19/20 16:30 Sodium Chloride 0.9% [Normal Saline] 1,000 ml IV ONETIME 12/20/20 06:07 Consult to Case Management/Commercial Horticulture Instructor [CONS] Routine - Assessment/Plan Last 24 Hours: My Active Orders 12/19/20 15:58 EKG 12 Lead [EKG Documentation Completion] [RC] ROUTINE 12/19/20 16:16 Peripheral IV Care [RC] . DIRECTED Sodium Chloride 0.9% [Saline Flush] 10 ml FLUSH ASDIRECTED PRN Peripheral IV Insertion Adult [OM.PC] Stat 12/19/20 16:30 Sodium Chloride 0.9% [Normal Saline] 1,000 ml IV ONETIME 12/20/20 06:07 Consult to Case Management/Commercial Horticulture Instructor [CONS] Routine
[2020-12-19] MEDS ORDERED: Sodium Chloride 0.9% 10 ML Syringe FLUSH PRN (16:16)
[2020-12-19] MEDS ORDERED: Ondansetron 4 MG/2 ML SDV IVPUSH ONE (16:24)
[2020-12-19] MEDS ORDERED: LORazepam 2 MG/ML SDV IVPUSH ONE ×2 (16:24→17:32)
[2020-12-19] MEDS ORDERED: Sodium Chloride 0.9% 1,000 ML IV SCH (16:30)
[2020-12-19] MEDS ORDERED: cloNIDine 0.1 MG Tab PO ONE (17:32)
[2020-12-19] MEDS ORDERED: Magnesium Sulfate/Water 4 GM in Premix Bag 1 BAG IV ONE (17:37)
[2020-12-19] MEDS ORDERED: Lactated Ringers 1,000 ML IV ONE (17:38)
[2020-12-20] MEDS ORDERED: Acetaminophen 325 MG Tab PO ONE ×2 (03:16→08:20)
[2020-12-20] MEDS ORDERED: LORazepam 2 MG/ML SDV IVPUSH ONE (08:19)
[2020-12-20] MEDS ORDERED: cloNIDine 0.1 MG Tab PO ONE (08:20)
[2020-12-20] MEDS: Lactated Ringers 1,000 ML IV ONE (09:00)
--- NOTE | 2020-12-20 09:48 | CT ---
Head CT Technique: Multiple axial sections through the brain were obtained. Intravenous contrast was not utilized. Reconstructed coronal and sagittal images were obtained. Comparison: Prior MRI brain dated 04/22/13. Findings: Ventricles along with basal cisterns and sulci over the convexities are within normal limits for the patient's age. No abnormal parenchymal densities are seen. No evidence of intracranial hemorrhage. No midline shift or mass effect is seen. Bone window settings were reviewed. Visualized mastoid sinuses and visualized paranasal sinuses show nothing acute. No acute calvarial finding is appreciated. Impression: 1. Nothing acute is identified on noncontrast head CT study. Diagnostic code #1
[2020-12-20 10:47] VITALS: BP 86/56; PULSE 90
--- NOTE | 2020-12-20 10:50 | CR ---
Chest: Portable view of the chest was obtained. Comparison: Prior chest x-ray of 01/21/19. Heart size and mediastinum are normal. Lungs are clear with no acute parenchymal change. No acute osseous abnormality is appreciated. Impression: 1. Nothing acute is appreciated on portable chest x-ray. Diagnostic code #1
[2020-12-20] MEDS ORDERED: Lactated Ringers 1,000 ML IV ONE (11:09)
== END 2020-12-20 11:48 ==
LOC: JD.ED 15:43
DX: F11.921 Opioid use, unspecified with intoxication delirium (principal); R41.82 Altered mental status, unspecified; Z20.822 Contact with and (suspected) exposure to COVID-19; Z72.0 Tobacco use
CPT/HCPCS: 36415; 70450; 71045; 80053; 80143; 80179; 80306; 80307; 81003; 83605; 83735; 85025; 87635; 93005; 96365; 96366; 96375; 96376; 99285; A9270; J2060; J2405; J3475; J7030; J7120; 93010; 99284; U0002